=== PATIENT | female | born 1985 | race Caucasian/White ===

== ENCOUNTER 2024-04-01 12:17 | Inpatient (IN) | payer BC, SELFPAY ==
[2024-04-01] VITALS (18 sets, daily range): BP systolic 98–129; BP diastolic 52–82; PULSE 90–197; RESP 14–18; TEMP 36.7–37.2; O2SAT 95–100; BMI 18.8
--- NOTE | 2024-04-01 12:46 | CRLHL7_ITS ---
For Patients: As a result of the 21st Century Cures Act, medical imaging exams and procedure reports are released immediately into your electronic medical record. You may view this report before your referring provider. If you have questions, please contact your health care provider. INDICATION: Right lower quadrant pain. Suspected hernia. COMPARISON: None available. TECHNIQUE: CT of the abdomen and pelvis with 100 cc of Isovue 370 intravenous contrast. Please note that all CT scans at this facility use dose modulation, iterative reconstruction, and/or weight-based dosing when appropriate to reduce radiation dose to as low as reasonably achievable. FINDINGS: BODY WALL Small bowel containing right femoral hernia medial to the right common femoral vein which is not compressed. The herniated bowel is notable for wall thickening and there is fat stranding within the hernia sac. Findings are suspicious for possible strangulation. Associated high-grade upstream mechanical small bowel obstruction. Surgical consultation is recommended. ABDOMEN Liver: Normal hepatic attenuation. No suspicious focal hepatic lesion. No intrahepatic biliary ductal dilatation. Patent portal and hepatic veins. Gallbladder: Normal gallbladder size. Normal common duct caliber. No pericholecystic inflammatory changes. Pancreas: Normal pancreatic attenuation. No focal lesion. Normal duct caliber. No peripancreatic inflammatory changes. Spleen: Normal splenic attenuation. No suspicious focal lesion. Patent splenic artery and vein. Adrenal Glands: Symmetrical adrenal glands. No focal lesion of significance. Kidneys: Normal bilateral renal attenuation. No suspicious focal lesion. No obstructing nephrolith or dilatation of the intrarenal collecting systems. Patent renal arteries and veins. Nondilated upper urinary tracts. Gastrointestinal tract: Diffuse small bowel dilatation with transition point at the location of the right femoral hernia discussed above. The terminal ileum and colon are collapsed. Incidental note is made of focal narrowing of the small bowel in the left upper quadrant consistent with peristalsis, demonstrated to best advantage on the coronal series (4; 61), not clinically significant. Normal appendix. Vascular: Abdominal aorta and its major proximal branches including the celiac, superior mesenteric, inferior mesenteric, renal, and bilateral common iliac arteries are patent. Inferior vena cava, portal and superior mesenteric veins are patent. Additional findings: No incidental adenopathy. No significant ascites, free fluid or pneumoperitoneum. PELVIS No bladder lesion is identified. No significant incidental findings related to the uterus and uterine adnexae. No abnormal free fluid. No incidental adenopathy. SKELETON No acute or suspicious incidental findings. LOWER THORAX Partially included lower thoracic wall, lungs, pleural spaces and mediastinum are otherwise without significant incidental findings. IMPRESSION: Small bowel containing right femoral hernia medial to the right common femoral vein which is not compressed. The herniated bowel is notable for wall thickening and there is fat stranding within the hernia sac. These features are suspicious for possible strangulation. Associated high-grade upstream mechanical small bowel obstruction with diffuse dilatation of the proximal small intestine. Surgical consultation is recommended. Findings were discussed directly with the ordering provider at 1:40 p.m. [employer]. Please note that all CT scans at this facility use dose modulation, iterative reconstruction, and/or weight-based dosing when appropriate to reduce radiation dose to as low as reasonably achievable. Dictated by Pablo Vance MD @ 04/01/2024 1:46:12 PM (Electronically Signed)
--- NOTE | 2024-04-01 12:48 | ED_ITS ---
HPI - Abdominal Pain General Chief Complaint: Abdominal Pain Stated Complaint: Growth in pelvis, constipation Time Seen by Provider: 04/01/24 12:21 History of Present Illness HPI narrative: This 38-year-old female comes in reporting pain and a bulge in her right lower quadrant at the inguinal region. She states that this 1st happened about 3 months ago and then symptoms resolved. About a month ago she had severe pain and has had a bulge in the right lower quadrant since then. She states that her pain is now at about 4/10 in severity and she reports no bowel movement for the past week. She has been losing weight and states that she did not have enough strength to come in for evaluation until today. She does not report any fevers. She has been taking liquids. Related Data Home Medications ?Medication ?Instructions ?Recorded ?Confirmed No Known Home Medications 04/01/24 04/01/24 Allergies Allergy/AdvReac Type Severity Reaction Status Date / Time No Known Drug Allergies Allergy Verified 04/01/24 12:28 Review of Systems Status of ROS Reports: 10 or more systems reviewed and unremarkable except as noted in History and below Narrative Constitutional: No fevers, no weight gain or loss. Eyes: No discharge. No vision changes. HENT: No congestion, no sore throat, no ear pain. Cardiovascular: No chest pain, no palpitations. Respiratory: No shortness of breath, no wheezes, no cough. Gastrointestinal: No vomiting, no diarrhea. Abdominal pain and a bulge in the right lower quadrant as described above. Genitourinary: No dysuria, no hematuria. Musculoskeletal: Normal range of motion. Skin: No rashes, no pruritis. Neurological: No dizziness, weakness, sensory change, speech change. Endo/Heme/Allergies: No bruising or bleeding. No polydipsia. Pysch: no suicidality, no anxiety, no insomnia. All other systems reviewed and are negative. PFSH PFSH Social History Smoking Status: Never smoker Do you use any of these nicotine containing products: None Second hand tobacco smoke exposure: No How often do you have a drink containing alcohol: never AUDIT-C Alcohol total score: 0 Non-prescribed substance use: denies use service: No Exam Narrative: Exam Narrative: Constitutional: Well-developed, well-nourished, no acute distress. HEENT: Normocephalic, atraumatic. Neck: Normal range of motion. Nontender. Supple. Heart: Regular. No murmurs. Normal rate. Intact distal pulses. Lungs: Clear to auscultation. No chest discomfort. No wheezes, rhonchi, or rales. Abdomen: Normal bowel sounds. No rebound tenderness. A well-defined bulge in the inguinal region typical of a inguinal hernia with suspicion of incarceration. Genitalia: Deferred. Back: No midline tenderness. Normal range of motion. Extremities: Normal range of motion. No injury. Skin: Intact. No rash. Warm. No erythema or pallor. Neurologic: No altered sensation. No weakness. Alert and oriented. Psychiatric: No suicidality. No anxiety or depression. No insomnia. Nursing notes and vitals signs are reviewed. Const: Vital Signs, click to edit/add: Vital Signs - 24 hr 04/01/24 12:23 Temperature 98.1 F Pulse Rate [Pulse Oximeter] 115 H Respiratory Rate 16 Blood Pressure [Ri ght Upper Arm] 129/82 Pulse Oximetry 98 Oxygen Delivery Me thod Room Air Course Vital Signs Vital signs: Initial Vital Signs Temperature 98.1 F 04/01/24 12:23 Temperature Source Temporal Artery Scan 04/01/24 12:23 Pulse Rate 115 H 04/01/24 12:23 Respiratory Rate 16 04/01/24 12:23 Blood Pressure 129/82 04/01/24 12:23 Blood Pressure Mean 97 04/01/24 12:23 Blood Pressure Position Sitting 04/01/24 12:23 Pulse Oximetry 98 04/01/24 12:23 Oxygen Delivery Method Room Air 04/01/24 12:23 Vital Signs Temperature 98.1 F 04/01/24 12:23 Pulse Rate 115 H 04/01/24 12:23 Respiratory Rate 16 04/01/24 12:23 Blood Pressure 129/82 04/01/24 12:23 Pulse Oximetry 98 04/01/24 12:23 Oxygen Delivery Method Room Air 04/01/24 12:23 Temperature 98.1 F 04/01/24 12:23 Pulse Rate 115 H 04/01/24 12:23 Respiratory Rate 16 04/01/24 12:23 Blood Pressure 129/82 04/01/24 12:23 Pulse Oximetry 98 04/01/24 12:23 Oxygen Delivery Method Room Air 04/01/24 12:23 Medications Administered Medications: Discontinued Medications Generic Name Dose Route Start Last Admin Trade Name Freq PRN Reason Stop Dose Admin Sodium Chloride 1,000 mls @ 1,000 mls/hr 04/01/24 13:00 04/01/24 13:00 0.9 % Sodium Chloride 1000 Ml IV 04/01/24 13:59 1,000 mls/hr .Q1H CHRISTOPHER Administration MDM - Abdominal Pain MDM Narrative Medical decision making narrative: This patient comes in with an inguinal hernia that has been present and painful for more than 2 weeks. She states that it initially occurred about 3 months ago but this appears to be incarcerated as she states that she has not been able to take any food and has not had any bowel movement for more than a week. She is also not passing any gas. An IV was established and CT imaging is obtained which shows an incarcerated hernia with loop of bowel present in the herniation. Upstream from there is large dilation of her bowels typical of bowel obst ruction. The patient did receive a L of normal saline through the IV and labs returned remarkable with a white count at 18.75, lactate normal, and sodium at 123. I did speak with the surgeon on-call, Dr. Mensah, is arranging for emergent surgery. We had discussion also with the hospitalist director of undergraduate admissions, Dr. Bingham with regard to replenishing her sodium deficit. Lab Data Labs: Lab Results 04/01/24 04/01/24 Range/Units 13:00 13:36 WBC 18.75 H (4.50-11.00) K/uL RBC 4.88 (4.00-5.20) m/uL Hgb 14.3 (12.0-16.0) gm/dL Hct 40.1 (33.0-51.0) % MCV 82 (80-100) fL MCH 29 (26-34) pg MCHC 36 (32-36) gm/dL RDW Coeff of [place] 11.8 (11.5-15.5) % Plt Count 453 H (140-440) K/uL Neut % (Auto) 85.2 H (42.0-72.0) % Lymph % (Auto) 7.3 L (20-44) % [place] % (Auto) 6.8 (0.0-11.0) % Eos % (Auto) 0.2 (0.0-7.0) % Baso % (Auto) 0.2 (0.0-3.0) % Neut # (Auto) 16.00 H (1.7-7.0) K/uL Lymph # (Auto) 1.40 (0.90-2.90) K/uL [place] # (Auto) 1.30 H (0.00-0.90) K/UL Eos # (Auto) 0.00 (0.00-0.50) K/uL Baso # (Auto) 0.00 (0.00-0.30) K/uL Abs Immat Gran (auto) 0.10 (0.00-0.30) K/uL Imm/Tot Granulo (auto) 0.3 % Sodium 123 L* (135-149) mmol/L Potassium 3.1 L (3.6-5.1) mmol/L Chloride 79 L (96-114) mmol/L Carbon Dioxide 29 (20-32) mmol/L Anion Gap 15 (7-15) mEq/L BUN 13 (5-24) mg/dL Creatinine 0.7 (0.5-1.5) mg/dL Estimated Creat Clear 93.63 Estimated GFR 113 ml/min Glucose 99 (60-115) mg/dL Lactate 0.8 (0.5-1.9) mmol/L Calcium 9.4 (8.4-10.6) mg/dL Imaging Data CT scan - abdomen: Radiologist's impression: Small bowel containing right femoral hernia medial to the right common femoral vein which is not compressed. The herniated bowel is notable for wall thickening and there is fat stranding within the hernia sac. These features are suspicious for possible strangulation. Associated high-grade upstream mechanical small bowel obstruction with diffuse dilatation of the proximal small intestine. Surgical consultation is recommended. Findings were discussed directly with the ordering provider at 1:40 p.m. [employer]. Discharge Plan Discharge Clinical Impression: Small bowel obstruction, Incarcerated hernia Patient Disposition: XFER to OR Condition: Unchanged Prescriptions: No Action No Known Home Medications Follow Up/Referrals: Provider,Not a Local [Primary Care Provider] -
[2024-04-01] MEDS: 0.9 % SODIUM CHLORIDE 1000 ml 1,000 ML IV ×2 (13:00→16:30)
[2024-04-01 13:06] LABS: Basophils Percent Auto 0.2 % (0.0-3.0); Eosinophils Percent Auto 0.2 % (0.0-7.0); Hematocrit 40.1 % (33.0-51.0); Hemoglobin* 14.3 gm/dL (12.0-16.0); Immature Granulocytes Pct Auto 0.3 %; Lymphocytes Percent Auto 7.3 % (20-44); Mean Corpuscular HGB Conc 36 gm/dL (32-36); Mean Corpuscular Hemoglobin 29 pg (26-34); Mean Corpuscular Volume 82 fL (80-100); Monocytes Percent Auto 6.8 % (0.0-11.0); Neutrophils Percent Auto 85.2 % (42.0-72.0); Platelet Count* 453 K/uL (140-440); RDW Coefficient of Variation % 11.8 % (11.5-15.5); Red Blood Count 4.88 m/uL (4.00-5.20); White Blood Count* 18.75 K/uL (4.50-11.00)
[2024-04-01 13:08] LABS: Slide Review Reflex No
[2024-04-01 13:18] LABS: Chloride* 79 mmol/L (96-114); Potassium* 3.1 mmol/L (3.6-5.1)
[2024-04-01 13:20] LABS: Creatinine* 0.7 mg/dL (0.5-1.5); Est. Creatinine Clearance* 93.63; Estimated Glomerular Filt Rate 113 ml/min
[2024-04-01 13:21] LABS: Anion Gap 15 mEq/L (7-15); Blood Urea Nitrogen* 13 mg/dL (5-24); Calcium* 9.4 mg/dL (8.4-10.6); Carbon Dioxide* 29 mmol/L (20-32); Glucose* 99 mg/dL (60-115)
[2024-04-01 13:26] LABS: Sodium* 123 mmol/L (135-149)
[2024-04-01 13:41] LABS: Lactate* 0.8 mmol/L (0.5-1.9)
[2024-04-01 14:54] LABS: Basophils Percent Auto 0.2 % (0.0-3.0); Eosinophils Percent Auto 0.1 % (0.0-7.0); Hematocrit 37.9 % (33.0-51.0); Hemoglobin* 13.4 gm/dL (12.0-16.0); Immature Granulocytes Pct Auto 0.3 %; Lymphocytes Percent Auto 7.4 % (20-44); Mean Corpuscular HGB Conc 35 gm/dL (32-36); Mean Corpuscular Hemoglobin 29 pg (26-34); Mean Corpuscular Volume 83 fL (80-100); Platelet Count* 455 K/uL (140-440); RDW Coefficient of Variation % 11.8 % (11.5-15.5); Red Blood Count 4.57 m/uL (4.00-5.20); White Blood Count* 21.43 K/uL (4.50-11.00)
[2024-04-01 14:57] LABS: Slide Review Reflex No
--- NOTE | 2024-04-01 15:06 | P.GSCN_ITS ---
History of Present Illness Consult details Date Seen: 04/01/24 Consult date: 04/01/24 Narrative: 38-year-old female presented to emergency room with abdominal pain and right inguinal bulge. Patient states that she first noticed right inguinal bulge on March 20. The bulge was painful and was very firm. Patient had multiple episodes of vomiting. The bulge when down in size slightly but she continued not to feel well and being very weak at home. In the last 10 days she has been minimally eating and drinking fluids. She has been urinating. She has been vomiting on and off. She things that her last bowel movement was 10 days ago and she does not think that she passed gas in the last several days. Patient decided to come to the emergency room today because she was finally able to get out of bed. I personally reviewed patient's workup. Her WBC was elevated to 18. Her sodium was 123 and potassium 3.1. An abdominal CT was obtained that showed diffusely dilated small intestine with incarcerated right inguinal hernia containing small bowel. Review of Systems Narrative: General: no fevers HENT: no problems swallowing CV: no shortness of breath Resp: no cough GI: No nausea, vomiting, abdominal pain : no dysuria, no increased urinary frequency, no hematuria Skin: no new rashes Musculoskeletal: no back pain Neuro: no muscle weakness Psyche: no depression, no anxiety PFSH PFSH Surgical History (Updated 04/01/24 @ 15:08 by Guille Mensah MD) H/O cone biopsy of cervix ?Z98.890 - Other specified postprocedural states (ICD-10) Social History (Updated 04/01/24 @ 15:18 by Guille Mensah MD) Narrative: Patient denies smoking and drinking alcohol. She works in IT. Smoking Status: Never smoker Do you use any of these nicotine containing products: None Second hand tobacco smoke exposure: No How often do you have a drink containing alcohol: never AUDIT-C Alcohol total score: 0 Non-prescribed substance use: denies use service: No Meds Home Medications and Allergies Home Medications ?Medication ?Instructions ?Recorded ?Confirmed ?Type No Known Home Medications 04/01/24 04/01/24 History Allergies Allergy/AdvReac Type Severity Reaction Status Date / Time No Known Drug Allergies Allergy Verified 04/01/24 12:28 Exam Narrative: Exam Narrative: General appearance: Alert, cooperative, and in no distress Pulmonary: Chest symmetric, lungs clear bilaterally Cardiovascular Heart: Regular rate and rhythm, S1, S2, no murmurs/rubs/gallops Gastrointestinal Abdominal: soft, minimally distended, not tender to palpation throughout the abdomen. In the right inguinal canal there is a firm to palpation incarcerated inguinal hernia that is not reducible. This is tender to palpation. There is no overlying erythema. Skin: Normal skin color, texture, and turgor. No rashes or lesions. Psychiatric: Alert, cooperative, normal affect. Const: Vital Signs, click to edit/add: Vital Signs - 24 hr 04/01/24 12:23 04/01/24 14:58 Temperature 98.1 F Pulse Rate [Pulse Oximeter] 115 H 107 H Respiratory Rate 16 18 Blood Pressure [Ri ght Upper Arm] 129/82 122/80 Pulse Oximetry 98 98 Oxygen Delivery Me thod Room Air Results Labs Labs: Abnormal lab results 04/01/24 04/01/24 Range/Units 13:00 14:36 WBC 18.75 H 21.43 H (4.50-11.00) K/uL Plt Count 453 H 455 H (140-440) K/uL Neut % (Auto) 85.2 H 86.0 H (42.0-72.0) % Lymph % (Auto) 7.3 L 7.4 L (20-44) % Neut # (Auto) 16.00 H 18.40 H (1.7-7.0) K/uL [place] # (Auto) 1.30 H 1.30 H (0.00-0.90) K/UL Sodium 123 L* (135-149) mmol/L Potassium 3.1 L (3.6-5.1) mmol/L Chloride 79 L (96-114) mmol/L Diabetes panel 04/01/24 Range/Units 13:00 Sodium 123 L* (135-149) mmol/L Potassium 3.1 L (3.6-5.1) mmol/L Chloride 79 L (96-114) mmol/L Carbon Dioxide 29 (20-32) mmol/L BUN 13 (5-24) mg/dL Creatinine 0.7 (0.5-1.5) mg/dL Glucose 99 (60-115) mg/dL Calcium 9.4 (8.4-10.6) mg/dL Calcium panel 04/01/24 Range/Units 13:00 Calcium 9.4 (8.4-10.6) mg/dL Pituitary panel 04/01/24 Range/Units 13:00 Sodium 123 L* (135-149) mmol/L Potassium 3.1 L (3.6-5.1) mmol/L Chloride 79 L (96-114) mmol/L Carbon Dioxide 29 (20-32) mmol/L BUN 13 (5-24) mg/dL Creatinine 0.7 (0.5-1.5) mg/dL Glucose 99 (60-115) mg/dL Calcium 9.4 (8.4-10.6) mg/dL Adrenal panel 04/01/24 Range/Units 13:00 Sodium 123 L* (135-149) mmol/L Potassium 3.1 L (3.6-5.1) mmol/L Chloride 79 L (96-114) mmol/L Carbon Dioxide 29 (20-32) mmol/L BUN 13 (5-24) mg/dL Creatinine 0.7 (0.5-1.5) mg/dL Glucose 99 (60-115) mg/dL Calcium 9.4 (8.4-10.6) mg/dL All other labs normal. Progress Note:A&P Assessment and plan (1) Incarcerated hernia: Status: Acute Assessment and Plan: 38-year-old female presents with incarcerated right inguinal hernia and small- bowel obstruction. I discussed with the patient and her sister her laboratory findings and her CT findings. Patient has incarcerated non reducible right inguinal hernia with associated small-bowel obstruction. I recommended to proceed with exploratory laparoscopy and open right inguinal hernia repair. I discussed with the patient that I may not be able to safely place the laparoscope into the abdomen to visualize reducing the hernia. We also discussed about possible open procedure and possible small-bowel resection. The risks of the procedure including infection, bleeding, the need for additional procedures, and complications arising from hyponatremia and hypokalemia were all discussed with the patient, and she agreed to proceed.
[2024-04-01 15:18] LABS: Sodium* 124 mmol/L (135-149)
[2024-04-01] MEDS: LACTATED RINGERS 1000 ML 1,000 ML 35 ML IV (15:30)
[2024-04-01] MEDS: PIPERACILLIN/TAZOBACTAM 3.375 GM in 0.9 % SODIUM CHLORIDE Mini-bag 100 ML IVPB ×2 (16:00→22:03)
[2024-04-01] MEDS: BUPIVACAINE 0.25% 30 ML INJECTION (16:23)
[2024-04-01 17:34] LABS: Lactate* 0.9 mmol/L (0.5-1.9)
[2024-04-01 17:35] LABS: Basophils Percent Auto 0.2 % (0.0-3.0); Eosinophils Percent Auto 0.2 % (0.0-7.0); Hemoglobin* 10.4 gm/dL (12.0-16.0); Immature Granulocytes Pct Auto 0.4 %; Lymphocytes Percent Auto 8.1 % (20-44); Mean Corpuscular HGB Conc 35 gm/dL (32-36); Mean Corpuscular Hemoglobin 29 pg (26-34); Mean Corpuscular Volume 84 fL (80-100); Monocytes Percent Auto 6.2 % (0.0-11.0); Neutrophils Percent Auto 84.9 % (42.0-72.0); Platelet Count* 355 K/uL (140-440); RDW Coefficient of Variation % 11.8 % (11.5-15.5); Red Blood Count 3.57 m/uL (4.00-5.20); White Blood Count* 17.35 K/uL (4.50-11.00)
[2024-04-01 17:37] LABS: Slide Review Reflex No
[2024-04-01 17:52] LABS: Chloride* 91 mmol/L (96-114); Potassium* 3.1 mmol/L (3.6-5.1)
[2024-04-01 17:55] LABS: Anion Gap 9 mEq/L (7-15); Blood Urea Nitrogen* 11 mg/dL (5-24); Carbon Dioxide* 23 mmol/L (20-32); Creatinine* 0.5 mg/dL (0.5-1.5); Est. Creatinine Clearance* 131.09; Estimated Glomerular Filt Rate 123 ml/min
[2024-04-01 17:56] LABS: Calcium* 7.4 mg/dL (8.4-10.6); Glucose* 107 mg/dL (60-115); Magnesium* 3.2 mg/dL (1.5-2.6)
[2024-04-01 18:02] LABS: Sodium* 123 mmol/L (135-149)
--- NOTE | 2024-04-01 19:32 | P.GSOP_ITS ---
Operative Note Date of procedure: 04/01/24 Pre-op diagnosis: 1. Incarcerated right inguinal hernia. 2. Hyponatremia. 3. Hypokalemia. Post-op diagnosis: 1. Incarcerated right femoral hernia containing small bowel. 2. Hyponatremia. 3. Hypokalemia. Type of Procedure: 1. Diagnostic laparoscopy. 2. Exploratory laparotomy. 3. Open right femoral hernia repair without mesh. 4. Small bowel resection with primary anastomosis. Indications: 38-year-old female presented to emergency room with diffuse abdominal pain and a right inguinal bulge that started 10 days ago. Patient states that the bulge was very firm and she had multiple episodes of vomiting. The bulge then decreased in size but she continued not to feel well and weak. She had did not present to the hospital earlier because she was not able to get out of bed. She has not being eating for the past several days and has been drinking to stay hydrated. She has been urinating. On clinical exam she was found to have minimally distended abdomen. There was a firm bulge in the right inguinal area that was not reducible. Patient's workup showed elevated WBC. Her sodium was 123 with potassium of 3.1. An abdominal CT was obtained that showed diffusely dilated small intestine with a transition point in the right inguinal canal in the incarcerated her hernia containing small intestine. Given patient's clinical picture, her physical exam, and CT findings, emergent diagnostic laparoscopy and open exploratory laparotomy with right inguinal hernia repair were recommended. The procedure was discussed in detail. The risks associated procedure including infection, bleeding, possible small-bowel resection, hernia recurrence, neurologic complications related to hyponatremia, and cardiopulmonary complications were all discussed with the patient, and she agreed to proceed Procedure Description: After discussing the risks and benefits of the procedure, the patient signed informed consent.? The operative site was marked and the patient was brought to the operating room and placed on the operating table in supine position.? Care was taken to pad the patient's pressure points.?? The patient was then intubated by anesthesia.? Fritz catheter was placed under sterile conditions.? The operative site was then prepped and draped in the usual sterile fashion.? A time-out was then performed. A 5-mm laparoscopy port was placed in the left upper quadrant guided by a 5-mm laparoscope placed into a translucent trochar. Passage through the layers of the abdominal wall was visualized with the laparoscope. A pneumoperitoneum was established. A 30-degree 5-mm laparoscope was advanced into the abdomen. The abdomen was briefly surveyed, and there was no evidence of diffuse peritonitis or stool. Open inguinal hernia incision was made over the right inguinal bulge with a scalpel. Subcutaneous fat was divided with cautery down to to external obliques. Superficial subcutaneous vascular branches were clamped, divided and tied with 3-0 Vicryl ties. The external obliques were divided with Metzenbaum scissors. The hernia bulge appeared to be inferior to the inguinal ligament. This was suggestive of a right femoral hernia. The tissues around the incarcerated hernia bulge were dissected with cautery. Hemostasis was achieved with cautery and Vicryl ties. When the incarcerated segment of small intestine was mobilized, I attempted to reduce it into the abdomen but was not successful. The right inguinal ligament was then divided superiorly. I again attempted to reduce the right femoral hernia but was not successful. At this time I noticed stool in right inguinal hernia surgical incision which was suggestive of perforation in the incarcerated bowel. At this time decision was made to convert to open laparotomy. The left upper quadrant 5 mm port was then removed. A vertical lower midline skin incision was made with a scalpel. Subcutaneous fat was divided with cautery. Anterior fascia was grasped with Brett clamps and incised with Metzenbaum scissors. Posterior sheath and peritoneum were gras ped with Mariann clamps and incised with Metzenbaum scissors. The abdomen was entered and surgical incision was extended superiorly and inferiorly with cautery. Clear yellow ascites was suctioned from the abdomen. A Medium sized Kirk was placed into the inferior laparotomy incision. With manipulation of the incarcerated segment of small intestine through the inguinal incision and through the laparotomy incision I was finally able to reduce the segment of small intestine. This was eviscerated and renée perforation was noted in the small intestine. This was located in the distal terminal ileum. The distal terminal ileum was decompressed and the proximal terminal ileum was dilated due to prolonged incarceration. We then proceeded with small bowel resection. Blue loads of ELDER stapler were used to divide small intestine distally and proximally to the area of perforation. Small-bowel mesentery of the resected segment was then clamped with Mariann clamps and divided with Metzenbaum scissors. Hemostasis achieved with Vicryl ties. The resected segment of small intestine was sent to pathology. Small bowel was examined from the area of resection to the ligament of Treitz. The small bowel appeared to be dilated but was perfused and no strictures or other abnormalities were noted. We then proceeded with creating [id number] functional end-to-end small bowel anastomosis. Bleeding was seen from the staple lines, and that was oversewn with 3-0 silk sutures. A stay suture was placed near the stapled ends of small bowel to align the stapled ends. An enterotomy was made in the distal and proximal ends of the small intestine approximately 1 cm from the stapled ends. One hundred blue load of ELDER stapler was used to create a [id number] anastomosis. The anastomosis was examined from the inside and no bleeding was seen. The common enterotomy was then closed with 3-0 silk Lembert sutures. A crotch stitch was placed with 3-0 silk suture. The anastomosis was well perfused and was patent on palpation. The small bowel mesenteric defect was closed with a running 3-0 Vicryl suture. The anastomosis was then placed into the abdomen. Previously placed towels that covered the abdomen and right inguinal incision were now removed and Kirk retractor was removed. Surgeon and water quality assistant changed gloves. The abdomen was then irrigated with warm normal saline. The NG tube was palpated in the stomach and was secured in place at 71 cm. We then proceeded with right inguinal hernia repair. The hernia sac was then eviscerated through the inguinal hernia incision. The hernia sac was mobilized and appeared to contain inflamed thickened preperitoneal fat. The appendix was visualized in the abdomen and the right ovary was visualized in the abdomen to ensure that those structures were not incarcerated in the hernia sac. The hernia sac was excised and sent to pathology. The peritoneal defect was then closed with a running Vicryl suture. This was pushed intraperitoneally. Hemostasis was achieved with cautery. The femoral hernia defect was repaired by placing interrupted 0-0 Nurolon sutures from the pubic tubercle and along the Robbie's ligament and securing it to the conjoint tendon medially. Adjacent to the femoral vein, a transition stitch was placed and then the repair continued laterally by suturing conjoint tendon to the inguinal ligament. At the end of the repair, the femoral vein did not appear to be compressed or injured. The round ligament was identified and was divided with clamps and ties. The proximal end of the round ligament was pushed into the internal ring, and the internal ring was closed with a [id number] Vicryl stitch. The external oblique layer was then closed with a running Vicryl suture. The inguinal incision was irrigated with saline. Local anesthetic was injected in the surgical field. Kimi's fascia was then closed with interrupted Vicryl sutures. Dermis was reapproximated with interrupted 3-0 Vicryl sutures. We then proceeded with closure of midline laparotomy. The fascia of the midline laparotomy was then closed with 2 running 0-0 Maxon sutures. Subcutaneous fat was reapproximated with interrupted 3-0 Vicryl sutures. The skin of the midline laparotomy incision and right inguinal incision were closed with klever. The skin of the left upper quadrant laparoscopic port was closed with 4-0 Monocryl stitch. Steri-Strips were placed over this incision. Midline laparotomy incision and inguinal incisions were covered with sterile dressings. All counts were correct at the end of the case. Patient tolerated this procedure well and was transferred to PACU in stable condition. Findings: Incarcerated small bowel in the right femoral hernia perforated during manipulation in attempt to reduce the hernia. This segment of bowel was resected and was located 25 cm from the ileocecal valve. The femoral hernia was repaired without mesh. Anesthesia: GETA Surgeon: Guille Mensah MD Estimated blood loss (mL): 50 Additional Specimen Information: 1. Small-bowel (terminal ileum). 2. Right inguinal hernia sac. Condition: stable Disposition: PACU
--- NOTE | 2024-04-01 19:43 | P.ANES_ITS ---
Anesthesia Charges Start Date/Time Anesthesia Start Date: 04/01/24 Anesthesia Start Time: 15:33 Stop Date/Time Anesthesia Stop Date: 04/01/24 Anesthesia Stop Time: 19:09 Summary Emergency: [facility]
--- NOTE | 2024-04-01 19:50 | P.NB_ITS ---
Nerve Block Nerve Block Time Seen by Provider: 19:00 Date Seen: 04/01/24 Type of block requested by surgeon for post-operative analgesia: TAP Side: bilateral Time out performed: Yes Verification of patient name: Yes Verification of date of : Yes Site marking: site marked Name of person performing procedure: Nasir Pablo Continuous monitoring Was continuous monitoring of O2 sat, B/P, monitor car operator, recorded every 15 minutes?: Yes Procedure Checklist: sterile prep, needles and gloves Ultrasound guided. Images saved: Yes Medications given in 5ml increments after negative aspiration: Marcaine %: 0.25 mL: 30 Needle gauge: 21 and Exparel mL: 10 Needle gauge: 21 Patient tolerated procedure well: Yes Additional comments: Injected in 5mL increments after negative aspiration Block Charges Block Charge (with Pro Fee): TAP Bilateral Use of Ultrasound Machine for Block: Yes- US Guidance/pain block
[2024-04-01] MEDS: 0.9 % SODIUM CHLORIDE 1000 ml 1,000 ML 125 ML IV (19:53)
--- NOTE | 2024-04-01 19:57 | P.IMHP_ITS ---
Hospitalist- H&P: HPI History of Present Illness Time Seen by Provider: 19:40 Date Seen: 04/01/24 Chief complaint: Growth in pelvis, constipation Narrative: Juany Green is a 38 year old healthy female who presented through the emergency department with a right inguinal bulge and no bowel movement for 10 days. She was found to have an incarcerated right inguinal hernia and small- bowel obstruction. She was also found to have hyponatremia and hypokalemia. S he comes to the CCU after surgery with an NG tube in place. Juany is awake and able to answer questions. She complaints of pain in her groin and lower abdomen. She denies chest pain or shortness of breath. Review of Systems Status of ROS: Reports: 6 or more systems reviewed and unremarkable except as noted in History and below [facility] Surgical History H/O cone biopsy of cervix ?Z98.890 - Other specified postprocedural states (ICD-10) Social History (Updated 04/01/24 @ 20:51 by Jacey Fournier MD) Narrative: Not . No children. She currently lives with her mother. Patient denies smoking and drinking alcohol. Denies recreational drug use. She works in IT. Smoking Status: Never smoker Do you use any of these nicotine containing products: None Second hand tobacco smoke exposure: No How often do you have a drink containing alcohol: never AUDIT-C Alcohol total score: 0 Non-prescribed substance use: denies use service: No Meds Home Medications and Allergies Home Medications ?Medication ?Instructions ?Recorded ?Confirmed ?Type No Known Home Medications 04/01/24 04/01/24 History Allergies Allergy/AdvReac Type Severity Reaction Status Date / Time No Known Drug Allergies Allergy Verified 04/01/24 12:28 Exam Narrative: Exam Narrative: General: No acute distress. Eyes closed, awake, oriented x3. HEENT: Normocephalic atraumatic, pupils equally round and reactive to light and accommodation. Oropharynx clear. Mucous membranes are dry. No cervical lymphadenopathy, thyromegaly or carotid bruits. No JVD. Cardiovascular: Regular rate and rhythm. No murmurs, gallops, or rubs. Chest: No increased work of breathing. Clear to auscultation bilaterally. No crackles or wheezes. Abdomen: Postsurgical abdomen with laparoscopic bandages and 2 larger bandages over the suprapubic and right inguinal areas. All bandages are clean, dry, and intact. Extremities: No edema, no cyanosis or clubbing. Skin: No jaundice, no pallor, no rashes. Const: Vital Signs, click to edit/add: Vital Signs - 24 hr 04/01/24 12:23 04/01/24 14:58 04/01/24 19:05 Temperature 98.1 F 98.7 F Pulse Rate 100 Pulse Rate [Pulse Oximeter] 115 H 107 H Respiratory Rate 16 18 16 Blood Pressure 115/55 L Blood Pressure [Ri ght Upper Arm] 129/82 122/80 Pulse Oximetry 98 98 97 Oxygen Delivery Me thod Room Air Room Air 04/01/24 19:10 04/01/24 19:15 04/01/24 19:20 Temperature Pulse Rate 93 98 95 Pulse Rate [Pulse Oximeter] Respiratory Rate 18 16 16 Blood Pressure 114/57 L 111/59 L 114/58 L Blood Pressure [Ri ght Upper Arm] Pulse Oximetry 99 97 99 Oxygen Delivery Me thod Room Air Room Air Room Air 04/01/24 19:25 04/01/24 19:30 Temperature 98.3 F Pulse Rate 97 90 Pulse Rate [Pulse Oximeter] Respiratory Rate 16 16 Blood Pressure 113/60 113/59 L Blood Pressure [Ri ght Upper Arm] Pulse Oximetry 99 99 Oxygen Delivery Me thod Room Air Room Air Hospitalist - H&P: Result Labs Labs: Short CBC 04/01/24 04/01/24 04/01/24 Range/Units 13:00 14:36 17:30 WBC 18.75 H 21.43 H 17.35 H (4.50-11.00) K/uL Hgb 14.3 13.4 10.4 L (12.0-16.0) gm/dL Hct 40.1 37.9 30.0 L (33.0-51.0) % Plt Count 453 H 455 H 355 (140-440) K/uL BMP 04/01/24 04/01/24 04/01/24 13:00 14:36 17:30 Sodium 123 L* 124 L* 123 L* Potassium 3.1 L 3.1 L Chloride 79 L 91 L Carbon Dioxide 29 23 BUN 13 11 Creatinine 0.7 0.5 Glucose 99 107 Calcium 9.4 7.4 L 04/01/2024 EKG done in PACU: Sinus rhythm with first-degree AV block, 91 beats per minute. Possible inferior infarct, age undetermined. ST and marked T-wave abnormality, consider anterolateral ischemia. Ordering Physician: Bob Downey M.D. Date of Service: 04/01/24 Procedure(s): CT abdomen pelvis w con Accession Number(s): [id number] cc: Bob Downey M.D.; Provider,Not a Local~ ADDENDUM INDICATION: Right lower quadrant pain. Suspected hernia. COMPARISON: None available. TECHNIQUE: CT of the abdomen and pelvis with 100 cc of Isovue 370 intravenous contrast. Please note that all CT scans at this facility use dose modulation, iterative reconstruction, and/or weight-based dosing when appropriate to reduce radiation dose to as low as reasonably achievable. FINDINGS: BODY WALL Small bowel containing right femoral hernia medial to the right common femoral vein which is not compressed. The herniated bowel is notable for wall thickening and there is fat stranding within the hernia sac. Findings are suspicious for possible strangulation. Associated high-grade upstream mechanical small bowel obstruction. Surgical consultation is recommended. ABDOMEN Liver: Normal hepatic attenuation. No suspicious focal hepatic lesion. No intrahepatic biliary ductal dilatation. Patent portal and hepatic veins. Gallbladder: Normal gallbladder size. Normal common duct caliber. No pericholecystic inflammatory changes. Pancreas: Normal pancreatic attenuation. No focal lesion. Normal duct caliber. No peripancreatic inflammatory changes. Spleen: Normal splenic attenuation. No suspicious focal lesion. Patent splenic artery and vein. Adrenal Glands: Symmetrical adrenal glands. No focal lesion of significance. Kidneys: Normal bilateral renal attenuation. No suspicious focal lesion. No obstructing nephrolith or dilatation of the intrarenal collecting systems. Patent renal arteries and veins. Nondilated upper urinary tracts. Gastrointestinal tract: Diffuse small bowel dilatation with transition point at the location of the right femoral hernia discussed above. The terminal ileum and colon are collapsed. Incidental note is made of focal narrowing of the small bowel in the left upper quadrant consistent with peristalsis, demonstrated to best advantage on the coronal series (4; 61), not clinically significant. Normal appendix. Vascular: Abdominal aorta and its major proximal branches including the celiac, superior mesenteric, inferior mesenteric, renal, and bilateral common iliac arteries are patent. Inferior vena cava, portal and superior mesenteric veins are patent. Additional findings: No incidental adenopathy. No significant ascites, free fluid or pneumoperitoneum. PELVIS No bladder lesion is identified. No significant incidental findings related to the uterus and uterine adnexae. No abnormal free fluid. No incidental adenopathy. SKELETON No acute or suspicious incidental findings. LOWER THORAX Partially included lower thoracic wall, lungs, pleural spaces and mediastinum are otherwise without significant incidental findings. IMPRESSION: Small bowel containing right femoral hernia medial to the right common femoral vein which is not compressed. The herniated bowel is notable for wall thickening and there is fat stranding within the hernia sac. These features are suspicious for possible strangulation. Associated high-grade upstream mechanical small bowel obstruction with diffuse dilatation of the proximal small intestine. Surgical consultation is recommended. Findings were discussed directly with the ordering provider at 1:[address] WORKER. Please note that all CT scans at this facility use dose modulation, iterative reconstruction, and/or weight-based dosing when appropriate to reduce radiation dose to as low as reasonably achievable. Dictated by Pablo Vance MD @ 04/01/2024 1:46:12 PM ----- ADDENDUM ----- ADDENDUM: Please note the correct amount of administered intravenous contrast in the edited TECHNIQUE section of the report as follows: TECHNIQUE: CT of the abdomen and pelvis with 58 cc of Isovue 370 intravenous contrast. Please note that all CT scans at this facility use dose modulation, iterative reconstruction, and/or weight-based dosing when appropriate to reduce radiation dose to as low as reasonably achievable. Dictated by Pablo Vance MD @ Apr 01 2024 1:51PM (Electronically Signed) For Patients: As a result of the Century Cures Act, medical imaging exams and procedure reports are released immediately into your electronic medical record. You may view this report before your referring provider. If you have questions, please contact your health care provider. INDICATION: Right lower quadrant pain. Suspected hernia. COMPARISON: None available. TECHNIQUE: CT of the abdomen and pelvis with 100 cc of Isovue 370 intravenous contrast. Please note that all CT scans at this facility use dose modulation, iterative reconstruction, and/or weight-based dosing when appropriate to reduce radiation dose to as low as reasonably achievable. FINDINGS: BODY WALL Small bowel containing right femoral hernia medial to the right common femoral vein which is not compressed. The herniated bowel is notable for wall thickening and there is fat stranding within the hernia sac. Findings are suspicious for possible strangulation. Associated high-grade upstream mechanical small bowel obstruction. Surgical consultation is recommended. ABDOMEN Liver: Normal hepatic attenuation. No suspicious focal hepatic lesion. No intrahepatic biliary ductal dilatation. Patent portal and hepatic veins. Gallbladder: Normal gallbladder size. Normal common duct caliber. No pericholecystic inflammatory changes. Pancreas: Normal pancreatic attenuation. No focal lesion. Normal duct caliber. No peripancreatic inflammatory changes. Spleen: Normal splenic attenuation. No suspicious focal lesion. Patent splenic artery and vein. Adrenal Glands: Symmetrical adrenal glands. No focal lesion of significance. Kidneys: Normal bilateral renal attenuation. No suspicious focal lesion. No obstructing nephrolith or dilatation of the intrarenal collecting systems. Patent renal arteries and veins. Nondilated upper urinary tracts. Gastrointestinal tract: Diffuse small bowel dilatation with transition point at the location of the right femoral hernia discussed above. The terminal ileum and colon are collapsed. Incidental note is made of focal narrowing of the small bowel in the left upper quadrant consistent with peristalsis, demonstrated to best advantage on the coronal series (4; 61), not clinically significant. Normal appendix. Vascular: Abdominal aorta and its major proximal branches including the celiac, superior mesenteric, inferior mesenteric, renal, and bilateral common iliac arteries are patent. Inferior vena cava, portal and superior mesenteric veins are patent. Additional findings: No incidental adenopathy. No significant ascites, free fluid or pneumoperitoneum. PELVIS No bladder lesion is identified. No significant incidental findings related to the uterus and uterine adnexae. No abnormal free fluid. No incidental adenopathy. SKELETON No acute or suspicious incidental findings. LOWER THORAX Partially included lower thoracic wall, lungs, pleural spaces and mediastinum are otherwise without significant incidental findings. IMPRESSION: Small bowel containing right femoral hernia medial to the right common femoral vein which is not compressed. The herniated bowel is notable for wall thickening and there is fat stranding within the hernia sac. These features are suspicious for possible strangulation. Associated high-grade upstream mechanical small bowel obstruction with diffuse dilatation of the proximal small intestine. Surgical consultation is recommended. Findings were discussed directly with the ordering provider at 1:[address] WORKER. Please note that all CT scans at this facility use dose modulation, iterative reconstruction, and/or weight-based dosing when appropriate to reduce radiation dose to as low as reasonably achievable. Dictated by Pablo Vance MD @ 04/01/2024 1:46:12 PM (Electronically Signed) Assessment and Plan Assessment and plan (1) Incarcerated hernia: Problem comment: - 04/01/24 status post diagnostic laparoscopy, exploratory laparotomy, open right femoral hernia repair without mesh, small-bowel resection with primary anastomosis. - cares per General surgery. - NG tube, NPO Status: Acute (2) Small bowel obstruction: Status: Acute (3) Hypokalemia: Problem comment: Due to going to the OR, patient has not yet received potassium replacement. Give IV replacement now and recheck in the morning. She will likely need further potassium replacement since she is getting NG suction. Magnesium was given by Anesthesia and magnesium level after surgery is mildly elevated. Status: Acute (4) Hyponatremia: Problem comment: Giving normal saline at 125 mL/hour. Patient is NPO at this time. Monitoring sodium q.4 hours. She started at 1:23 a.m. in the ER upon presentation. Goal is to raise sodium for points in the next 24 hours. Status: Acute (5) Hypocalcemia: Problem comment: Ionized calcium is 1. Patient is NPO. Will give IV calcium gluconate and recheck in the morning. Status: Acute
[2024-04-01] MEDS: HYDROmorphone 0.5 mg/0.5 ml inj IVP ×4 (20:02→23:31)
[2024-04-01] MEDS: POTASSIUM CHLORIDE 10 MEQ/100 ML PIGGYBACK 100 MEQ IVPB ×2 (20:59→22:14)
[2024-04-01 21:36] LABS: Sodium* 127 mmol/L (135-149)
[2024-04-01 21:51] LABS: Troponin I* 0.02 ng/mL (0.01-0.04)
[2024-04-01] MEDS: LACTATED RINGERS 1000 ML 1,000 ML 75 ML IV (21:57)
[2024-04-01] MEDS: CALCIUM GLUC 1,000MG/50 ML 1,000 MG/50 ML BAG 100 MG IVPB ×2 (21:57→22:39)
[2024-04-01 23:25] LABS: Sodium* 125 mmol/L (135-149)
[2024-04-01] MEDS: LACTATED RINGERS 1000 ML 1,000 ML 100 ML IV (23:35)
[2024-04-02] VITALS (15 sets, daily range): BP systolic 93–129; BP diastolic 57–77; PULSE 98–115; RESP 14–18; TEMP 36.7–37.6; O2SAT 93–99
--- NOTE | 2024-04-02 00:03 | PC.NURSE ---
Shift Note: Pt returned from PACU at 1940 with immediate complaints of 10/10 pain. Pt given three subsequent doses of PRN Dilaudid Q1H, pt now rating pain 6-7/10. HR mildly tachycardic, BP's WNL. SpO2 95-99% on RA. Pt alert and answers questions appropriately. Surgical dressings x2 to abdomen C,D,&I with active ice in place. Fritz patent and draining, urine output 125cc since return from PACU. Pt tolerating oral swabs and minimal ice chips. No output from NG tube located in left nare at 70cm connected to LIS. Sister at bedside most of this evening. [employer] updated patient and her sister on POC, pain control, and orientation to the hospital setting.
[2024-04-02] MEDS: HYDROmorphone 0.5 mg/0.5 ml inj IVP ×14 (00:53→22:41)
[2024-04-02] MEDS: PIPERACILLIN/TAZOBACTAM 3.375 GM in 0.9 % SODIUM CHLORIDE Mini-bag 100 ML IVPB ×4 (03:52→22:06)
[2024-04-02 06:12] LABS: Ionized Calcium* 1.08 mmol/L (1.11-1.30)
[2024-04-02 06:18] LABS: Basophils Percent Auto 0.2 % (0.0-3.0); Eosinophils Percent Auto 0.1 % (0.0-7.0); Hematocrit 34.3 % (33.0-51.0); Hemoglobin* 11.9 gm/dL (12.0-16.0); Immature Granulocytes Pct Auto 0.3 %; Lymphocytes Percent Auto 7.2 % (20-44); Mean Corpuscular HGB Conc 35 gm/dL (32-36); Mean Corpuscular Hemoglobin 30 pg (26-34); Mean Corpuscular Volume 85 fL (80-100); Neutrophils Percent Auto 89.2 % (42.0-72.0); Platelet Count* 383 K/uL (140-440); RDW Coefficient of Variation % 12.3 % (11.5-15.5); Red Blood Count 4.03 m/uL (4.00-5.20); White Blood Count* 19.13 K/uL (4.50-11.00)
[2024-04-02 06:19] LABS: Slide Review Reflex No
--- NOTE | 2024-04-02 06:28 | PC.NURSE ---
End of shift [id number]: Pt has been A&O, afebrile and VSS. BP has been soft 90s/60s but MAP remains > 65. She?s rating mid-right sided abdominal pain at 7/10 and reports it?s sharp & intermittent. PRN Dilaudid given hourly throughout the night. Pt reports quick relief but the pain returns in waves after about 30 min. She slept well in between cares & SpO2 maintained > 92% on RA. Midline abdominal dressings x2 C/D/I and bilateral band-aids from blocks are intact. PIV in left AC is SL and C/D/I. PIV in right AC is C/D/I and infusing LR @ 100 mL/hr. Na+ @ 2300 was 125 with scheduled recheck with AM labs. NG is patent in left nare at 70 mm on LIS. Drainage output in canister is green/brown in color, total output overnight 300 mL. Pt tolerated minimal ice chips overnight with no c/o nausea. Fritz catheter is intact & draining dark yellow urine, total output overnight [address] ranging from 90s to 1-teens regular rhythm. ?
[2024-04-02 06:34] LABS: Magnesium* 2.1 mg/dL (1.5-2.6); Phosphorus* 3.8 mg/dL (2.5-4.5)
[2024-04-02 06:35] LABS: Chloride* 95 mmol/L (96-114); Potassium* 3.6 mmol/L (3.6-5.1); Sodium* 127 mmol/L (135-149)
[2024-04-02 06:38] LABS: Anion Gap 6 mEq/L (7-15); Blood Urea Nitrogen* 8 mg/dL (5-24); Carbon Dioxide* 26 mmol/L (20-32); Creatinine* 0.6 mg/dL (0.5-1.5); Est. Creatinine Clearance* 109.88; Estimated Glomerular Filt Rate 118 ml/min; Glucose* 86 mg/dL (60-115)
[2024-04-02 06:39] LABS: Calcium* 7.9 mg/dL (8.4-10.6)
[2024-04-02] MEDS: LACTATED RINGERS 1000 ML 1,000 ML 100 ML IV ×2 (08:15→13:06)
--- NOTE | 2024-04-02 09:00 | P.GSPN_ITS ---
Subjective Subjective Date Seen: 04/02/24 Interval history: Patient is doing well. Her pain is controlled with pain medication. She denied vomiting. NG tube put out 300 mL. Urine output was 450 since surgery. Patient's WBC continues to be elevated at 19. Her sodium is 127 today. Exam Narrative: Exam Narrative: Abdomen is soft, not distended, tender to palpation in bilateral lower quadrants. Surgical incisions are covered with clean and dry dressings. Const: Vital Signs, click to edit/add: Vital Signs - 24 hr 04/01/24 12:23 04/01/24 14:58 04/01/24 19:05 Temperature 98.1 F 98.7 F Pulse Rate 100 Pulse Rate [Pulse Oximeter] 115 H 107 H Respiratory Rate 16 18 16 Blood Pressure 115/55 L Blood Pressure [Le ft Arm] Blood Pressure [Ri ght Upper Arm] 129/82 122/80 Pulse Oximetry 98 98 97 Oxygen Delivery Me thod Room Air Room Air 04/01/24 19:10 04/01/24 19:15 04/01/24 19:20 Temperature Pulse Rate 93 98 95 Pulse Rate [Pulse Oximeter] Respiratory Rate 18 16 16 Blood Pressure 114/57 L 111/59 L 114/58 L Blood Pressure [Le ft Arm] Blood Pressure [Ri ght Upper Arm] Pulse Oximetry 99 97 99 Oxygen Delivery La thod Room Air Room Air Room Air 04/01/24 19:25 04/01/24 19:30 04/01/24 20:00 Temperature 98.3 F 98.7 F Pulse Rate 97 90 98 Pulse Rate [Pulse Oximeter] Respiratory Rate 16 16 16 Blood Pressure 113/60 113/59 L 103/60 Blood Pressure [Le ft Arm] Blood Pressure [Ri ght Upper Arm] Pulse Oximetry 99 99 100 Oxygen Delivery Me thod Room Air Room Air Room Air 04/01/24 20:13 04/01/24 20:13 04/01/24 20:15 Temperature 98.7 F Pulse Rate 105 H Pulse Rate [Pulse Oximeter] 99 Respiratory Rate 16 16 Blood Pressure 102/54 L Blood Pressure [Le ft Arm] 98/56 L Blood Pressure [Ri ght Upper Arm] Pulse Oximetry 100 97 97 Oxygen Delivery Me thod Room Air Room Air Room Air 04/01/24 20:30 04/01/24 20:45 04/01/24 21:14 Temperature 98.7 F Pulse Rate 100 197 H 98 Pulse Rate [Pulse Oximeter] Respiratory Rate 16 16 16 Blood Pressure 103/56 L 106/61 98/56 L Blood Pressure [Le ft Arm] Blood Pressure [Ri ght Upper Arm] Pulse Oximetry 98 95 100 Oxygen Delivery Me thod Room Air Room Air Room Air 04/01/24 21:15 04/01/24 21:45 04/01/24 22:30 Temperature 99 F Pulse Rate 119 H 115 H 112 H Pulse Rate [Pulse Oximeter] Respiratory Rate 16 16 16 Blood Pressure 103/52 L 102/56 L 101/54 L Blood Pressure [Le ft Arm] Blood Pressure [Ri ght Upper Arm] Pulse Oximetry 100 97 97 Oxygen Delivery Me thod Room Air Room Air Room Air 04/01/24 23:00 04/01/24 23:00 04/01/24 23:00 Temperature 98.6 F Pulse Rate 100 111 H Pulse Rate [Pulse Oximeter] 100 Respiratory Rate 14 14 Blood Pressure 98/60 Blood Pressure [Le ft Arm] Blood Pressure [Ri ght Upper Arm] Pulse Oximetry 96 Oxygen Delivery Me thod Room Air 04/01/24 23:00 04/02/24 00:13 04/02/24 01:03 Temperature 98.2 F 98.1 F Pulse Rate 98 106 H Pulse Rate [Pulse Oximeter] Respiratory Rate 14 14 16 Blood Pressure 93/57 L 99/63 Blood Pressure [Le ft Arm] Blood Pressure [Ri ght Upper Arm] Pulse Oximetry 96 95 95 Oxygen Delivery Me thod Room Air Room Air Room Air 04/02/24 02:05 04/02/24 03:00 04/02/24 03:00 Temperature 98.1 F Pulse Rate 101 H 104 H Pulse Rate [Pulse Oximeter] Respiratory Rate 16 16 Blood Pressure 102/62 Blood Pressure [Le ft Arm] Blood Pressure [Ri ght Upper Arm] Pulse Oximetry 94 Oxygen Delivery Me thod Room Air 04/02/24 04:00 04/02/24 06:00 Temperature 98.3 F 98.9 F Pulse Rate Pulse Rate [Pulse Oximeter] 113 H 113 H Respiratory Rate 16 16 Blood Pressure Blood Pressure [Le ft Arm] 99/62 94/64 Blood Pressure [Ri ght Upper Arm] Pulse Oximetry 95 97 Oxygen Delivery Me thod Room Air Room Air Progress Note:A&P Assessment and plan (1) S/P exploratory laparotomy: Status: Acute Assessment and Plan: 38-year-old female s/p exploratory laparotomy, small-bowel resection, and open right inguinal hernia repair without mesh for strangulated right inguinal hernia POD 1. Patient did well overnight. Her sodium is coming up slowly and today is 127. Hospitalist is helping us manage in her hyponatremia. Will leave the Fritz catheter in for another day to keep benign her urine output with fluid resuscitation. Patient is slightly tachycardic which is most likely due to systemic inflammatory response syndrome and dehydration. Will keep her on prophylactic antibiotics for now due to stool contamination in the right inguina l incision. Will keep NPO with ice chips for comfort. (2) S/P right inguinal hernia repair: Status: Acute
--- NOTE | 2024-04-02 09:17 | NUTR.NU ---
RDN with nutrition screen related to positive MST for poor appetite and weight loss recently. Patient post op day 1 of diagnostic laparoscopy, exploratory laparotomy, open right femoral hernia repair without mesh, small-bowel resection with primary anastomosis. Current diet is NPO. No appropriate to visit with patient at this time. RDN will continue to monitor and visit with patient at later date, when appropriate.
[2024-04-02] MEDS: ENOXAPARIN 40 MG/0.4 ML INJ SUBCUT (10:23)
--- NOTE | 2024-04-02 13:02 | P.IMPN_ITS ---
Progress Note: A&P Assessment and plan (1) Small bowel obstruction: Problem details: Onset March 20. Constipation, vomiting, anorexia, malnutrition, dehydration all developed from small-bowel obstruction from incarcerated femoral hernia Status: Acute (2) Incarcerated hernia: Problem details: - 04/01/24 status post diagnostic laparoscopy, exploratory laparotomy, open right femoral hernia repair without mesh, small-bowel resection with primary anastomosis. - cares per General surgery. - NG tube, NPO Status: Acute (3) Hypokalemia: Problem details: Corrected, follow Status: Acute (4) Hyponatremia: Problem details: Slowly correcting. Status: Acute (5) Hypocalcemia: Problem details: Slowly correcting Status: Acute (6) Dehydration: Problem details: Improving. Fluid boluses as needed Status: Acute (7) Malnutrition due to starvation: Problem details: Due to minimal nutritional intake for 12 days prior to admission Status: Acute (8) S/P right inguinal hernia repair: Problem details: right femoral hernia repair without mesh Status: Acute (9) S/P exploratory laparotomy: Problem details: small bowel resection Status: Acute Plan Continue in hospital for management of surgical recovery with NG tube, Fritz catheter, IV fluids and antibiotics, monitoring and managing electrolytes. Time Spent With Patient Total time spent: 60 minutes Subjective Date Seen: 04/02/24 Interval history: 38-year-old female, previously healthy, admitted to the hospital with a 12 day history of right groin pain and swelling, vomiting and constipation. With this she became profoundly weak as well. Evaluation emergency room showed that she had an incarcerated hernia. She also had severe dehydration and marked electrolyte abnormalities. She was taken to the operating room by Dr. Mensah and had hernia repair with small bowel resection an anastomosis. Prior to and after surgery she had fluid resuscitation and correction of electrolytes. NG tube and Fritz catheter are present. Today she reports feeling much better. She reports being thirsty. Pain is much better. No shortness of breath. She has been up in chair and walking. Exam Narrative: Exam Narrative: She is alert and appears in no distress. Mood and affect are bright. She gives her own history. NG tube is draining greenish colored clear fluid. Fritz catheter is draining fairly dark yellow urine. Respirations are clear to auscultation. Cardiovascular: S1, S2, regular rate and rhythm. Abdomen: Bowel sounds are absent. Abdomen is soft she has moderate right lower quadrant tenderness can not consistent with her postoperative status. Extremities without edema. Good peripheral pulses. Const: Vital Signs, click to edit/add: Vital Signs - 24 hr 04/01/24 14:58 04/01/24 19:05 04/01/24 19:10 Temperature 98.7 F Pulse Rate 100 93 Pulse Rate [Pulse Oximeter] 107 H Respiratory Rate 18 16 18 Blood Pressure 115/55 L 114/57 L Blood Pressure [Le ft Arm] Blood Pressure [Ri ght Upper Arm] 122/80 Pulse Oximetry 98 97 99 Oxygen Delivery Me thod Room Air Room Air 04/01/24 19:15 04/01/24 19:20 04/01/24 19:25 Temperature Pulse Rate 98 95 97 Pulse Rate [Pulse Oximeter] Respiratory Rate 16 16 16 Blood Pressure 111/59 L 114/58 L 113/60 Blood Pressure [Le ft Arm] Blood Pressure [Ri ght Upper Arm] Pulse Oximetry 97 99 99 Oxygen Delivery Me thod Room Air Room Air Room Air 04/01/24 19:30 04/01/24 20:00 04/01/24 20:13 Temperature 98.3 F 98.7 F 98.7 F Pulse Rate 90 98 Pulse Rate [Pulse Oximeter] 99 Respiratory Rate 16 16 16 Blood Pressure 113/59 L 103/60 Blood Pressure [Le ft Arm] 98/56 L Blood Pressure [Ri ght Upper Arm] Pulse Oximetry 99 100 100 Oxygen Delivery Me thod Room Air Room Air Room Air 04/01/24 20:13 04/01/24 20:15 04/01/24 20:30 Temperature Pulse Rate 105 H 100 Pulse Rate [Pulse Oximeter] Respiratory Rate 16 16 Blood Pressure 102/54 L 103/56 L Blood Pressure [Le ft Arm] Blood Pressure [Ri ght Upper Arm] Pulse Oximetry 97 97 98 Oxygen Delivery Me thod Room Air Room Air Room Air 04/01/24 20:45 04/01/24 21:14 04/01/24 21:15 Temperature 98.7 F Pulse Rate 197 H 98 119 H Pulse Rate [Pulse Oximeter] Respiratory Rate 16 16 16 Blood Pressure 106/61 98/56 L 103/52 L Blood Pressure [Le ft Arm] Blood Pressure [Ri ght Upper Arm] Pulse Oximetry 95 100 100 Oxygen Delivery Me thod Room Air Room Air Room Air 04/01/24 21:45 07/23/24 22:30 04/01/24 23:00 Temperature 99 F 98.6 F Pulse Rate 115 H 112 H 100 Pulse Rate [Pulse Oximeter] Respiratory Rate 16 16 14 Blood Pressure 102/56 L 101/54 L 98/60 Blood Pressure [Le ft Arm] Blood Pressure [Ri ght Upper Arm] Pulse Oximetry 97 97 96 Oxygen Delivery Me thod Room Air Room Air Room Air 04/01/24 23:00 04/01/24 23:00 04/01/24 23:00 Temperature Pulse Rate 111 H Pulse Rate [Pulse Oximeter] 100 Respiratory Rate 14 14 Blood Pressure Blood Pressure [Le ft Arm] Blood Pressure [Ri ght Upper Arm] Pulse Oximetry 96 Oxygen Delivery Me thod Room Air 04/02/24 00:13 04/02/24 01:03 04/02/24 02:05 Temperature 98.2 F 98.1 F 98.1 F Pulse Rate 98 106 H 101 H Pulse Rate [Pulse Oximeter] Respiratory Rate 14 16 16 Blood Pressure 93/57 L 99/63 102/62 Blood Pressure [Le ft Arm] Blood Pressure [Ri ght Upper Arm] Pulse Oximetry 95 95 94 Oxygen Delivery Me thod Room Air Room Air Room Air 04/02/24 03:00 04/02/24 03:00 04/02/24 04:00 Temperature 98.3 F Pulse Rate 104 H Pulse Rate [Pulse Oximeter] 113 H Respiratory Rate 16 16 Blood Pressure Blood Pressure [Le ft Arm] 99/62 Blood Pressure [Ri ght Upper Arm] Pulse Oximetry 95 Oxygen Delivery Me thod Room Air 04/02/24 06:00 04/02/24 07:00 04/02/24 07:45 Temperature 98.9 F Pulse Rate 107 H Pulse Rate [Pulse Oximeter] 113 H 101 H Respiratory Rate 16 16 Blood Pressure Blood Pressure [Le ft Arm] 94/64 Blood Pressure [Ri ght Upper Arm] Pulse Oximetry 97 Oxygen Delivery Me thod Room Air 04/02/24 07:45 04/02/24 08:00 04/02/24 10:00 Temperature 98.3 F 98.9 F Pulse Rate Pulse Rate [Pulse Oximeter] 101 H 107 H Respiratory Rate 16 16 16 Blood Pressure Blood Pressure [Le ft Arm] 129/76 115/75 Blood Pressure [Ri ght Upper Arm] Pulse Oximetry 93 93 95 Oxygen Delivery Me thod Room Air Room Air Room Air Documenting provider has reviewed patient's vital signs: yes Labs Labs: Laboratory Results - last 24 hr 04/01/24 04/01/24 04/01/24 13:00 13:36 14:36 WBC 18.75 H 21.43 H RBC 4.88 4.57 Hgb 14.3 13.4 Hct 40.1 37.9 MCV 82 83 MCH 29 29 MCHC 36 35 RDW Coeff of Hoang 11.8 11.8 Plt Count 453 H 455 H Neut % (Auto) 85.2 H 86.0 H Lymph % (Auto) 7.3 L 7.4 L [place] % (Auto) 6.8 6.0 Eos % (Auto) 0.2 0.1 Baso % (Auto) 0.2 0.2 Neut # (Auto) 16.00 H 18.40 H Lymph # (Auto) 1.40 1.60 [place] # (Auto) 1.30 H 1.30 H Eos # (Auto) 0.00 0.00 Baso # (Auto) 0.00 0.00 Abs Immat Gran (auto) 0.10 0.10 Imm/Tot Granulo (auto) 0.3 0.3 Sodium 123 L* 124 L* Potassium 3.1 L Chloride 79 L Carbon Dioxide 29 Anion Gap 15 BUN 13 Creatinine 0.7 Estimated Creat Clear 93.63 Estimated GFR 113 Glucose 99 Lactate 0.8 Calcium 9.4 Ionized Calcium Erica Phosphorus Magnesium Troponin I Lab Acknowledgement 04/01/24 04/01/24 04/01/24 17:30 20:38 20:43 WBC 17.35 H RBC 3.57 L Hgb 10.4 L Hct 30.0 L MCV 84 MCH 29 MCHC 35 RDW Coeff of Hoang 11.8 Plt Count 355 Neut % (Auto) 84.9 H Lymph % (Auto) 8.1 L [place] % (Auto) 6.2 Eos % (Auto) 0.2 Baso % (Auto) 0.2 Neut # (Auto) 14.70 H Lymph # (Auto) 1.40 [place]oshone # (Auto) 1.10 H Eos # (Auto) 0.00 Baso # (Auto) 0.00 Abs Immat Gran (auto) 0.10 Imm/Tot Granulo (auto) 0.4 Sodium 123 L* 127 L Potassium 3.1 L Chloride 91 L Carbon Dioxide 23 Anion Gap 9 BUN 11 Creatinine 0.5 Estimated Creat Clear 131.09 Estimated GFR 123 Glucose 107 Lactate 0.9 Calcium 7.4 L Ionized Calcium Erica Phosphorus Magnesium 3.2 H Troponin I 0.02 Lab Acknowledgement Test Added 04/01/24 04/01/24 04/02/24 20:46 23:03 06:01 WBC 19.13 H RBC 4.03 Hgb 11.9 L Hct 34.3 MCV 85 MCH 30 MCHC 35 RDW Coeff of Hoang 12.3 Plt Count 383 Neut % (Auto) 89.2 H Lymph % (Auto) 7.2 L [place] % (Auto) 3.0 Eos % (Auto) 0.1 Baso % (Auto) 0.2 Neut # (Auto) 17.10 H Lymph # (Auto) 1.40 [place] # (Auto) 0.60 Eos # (Auto) 0.00 Baso # (Auto) 0.00 Abs Immat Gran (auto) 0.10 Imm/Tot Granulo (auto) 0.3 Sodium 125 L 127 L Potassium 3.6 Chloride 95 L Carbon Dioxide 26 Anion Gap 6 L BUN 8 Creatinine 0.6 Estimated Creat Clear 109.88 Estimated GFR 118 Glucose 86 Lactate Calcium 7.9 L Ionized Calcium Erica 1.00 L 1.08 L Phosphorus 3.8 Magnesium 2.1 Troponin I Lab Acknowledgement
[2024-04-02 13:51] LABS: Sodium* 128 mmol/L (135-149)
[2024-04-02] MEDS: 5 % DEXTROSE IN LAC RINGER'S 1,000 ML 125 ML IV ×2 (14:46→22:47)
--- NOTE | 2024-04-02 14:59 | PC.NURSE ---
PATIENT AFEBRILE. BOWEL SOUNDS RARE AND DENIES PASSING GAS. NG TO LEFT NARE AT 70. 400ML OUTPUT THIS SHIFT. PATIENT HAS DENIED NAUSEA AND PAIN CONTROLLED WITH DILAUDID IV AND ICE PACK TO ABDOMEN. DRESSING TO ABDOMEN CDI. UP WITH A1-2 TO RECLINER AND AMBULATED IN HALLWAY. DENIED FEELING DIZZY OR LIGHTHEADED.
[2024-04-02] MEDS: LACTATED RINGERS 1000 ML 1,000 ML IV (17:57)
--- NOTE | 2024-04-02 18:38 | PC.NURSE ---
Pt pleasant and conversational. Denies passing gas, bowels absent to rare. Ice chips for comfort, denies nausea, no vomiting. Abdominal dressing intact. Educated on use of pillow for splinting when moving in/out of bed. Ambulated 100 feet in juarez, elevated HR noted on telemetry, Fluid bolus ordered by Dr. Fournier, given per NOV. Urine and NG output documented, see charting. NG in left nare @70, RightSpot pH 4.5.
[2024-04-02] MEDS: LACTATED RINGERS 1000 ML 1,000 ML 500 ML IV (20:09)
[2024-04-02] MEDS: CALCIUM GLUC 1,000MG/50 ML 1,000 MG/50 ML BAG 100 MG IVPB (20:28)
[2024-04-02 20:40] LABS: Sodium* 127 mmol/L (135-149)
[2024-04-03] VITALS (10 sets, daily range): BP systolic 92–111; BP diastolic 51–67; PULSE 9–113; RESP 14–18; TEMP 36.8–37.7; O2SAT 94–99
[2024-04-03] MEDS: HYDROmorphone 0.5 mg/0.5 ml inj IVP ×8 (01:42→23:33)
[2024-04-03] MEDS: PIPERACILLIN/TAZOBACTAM 3.375 GM in 0.9 % SODIUM CHLORIDE Mini-bag 100 ML IVPB ×4 (03:35→22:16)
--- NOTE | 2024-04-03 05:41 | PC.NURSE ---
[id number]: Pt is alert, oriented, and conversational during shift. Pt denies SOB, CP, N/V. Pt expressed pain throughout the shift. PRN dilaudid and ice chips were given. Relief noted by Pt. Abdominal dressing dry and intact. Bowel sounds present on auscultation. Pt is not passing flatus but states she feels ?gurgles.? Pt uses call light appropriately. Urine and NG output documented, see charting. ?
[2024-04-03 06:08] LABS: Basophils Percent Auto 0.1 % (0.0-3.0); Eosinophils Percent Auto 0.1 % (0.0-7.0); Hemoglobin* 9.8 gm/dL (12.0-16.0); Lymphocytes Percent Auto 6.1 % (20-44); Mean Corpuscular HGB Conc 34 gm/dL (32-36); Mean Corpuscular Hemoglobin 29 pg (26-34); Mean Corpuscular Volume 87 fL (80-100); Monocytes Percent Auto 4.2 % (0.0-11.0); Neutrophils Percent Auto 88.5 % (42.0-72.0); Platelet Count* 338 K/uL (140-440); RDW Coefficient of Variation % 12.6 % (11.5-15.5); Red Blood Count 3.35 m/uL (4.00-5.20); White Blood Count* 15.55 K/uL (4.50-11.00)
[2024-04-03 06:10] LABS: Slide Review Reflex No
[2024-04-03 06:20] LABS: Chloride* 98 mmol/L (96-114)
[2024-04-03 06:21] LABS: Sodium* 128 mmol/L (135-149)
[2024-04-03 06:23] LABS: Creatinine* 0.5 mg/dL (0.5-1.5); Est. Creatinine Clearance* 140.05; Estimated Glomerular Filt Rate 123 ml/min
[2024-04-03 06:24] LABS: Anion Gap 2 mEq/L (7-15); Blood Urea Nitrogen* 4 mg/dL (5-24); Carbon Dioxide* 28 mmol/L (20-32)
[2024-04-03 06:25] LABS: Calcium* 7.3 mg/dL (8.4-10.6); Glucose* 128 mg/dL (60-115)
[2024-04-03 06:26] LABS: Potassium* 2.8 mmol/L (3.6-5.1)
[2024-04-03] MEDS: POTASSIUM CHLORIDE 10 MEQ/100 ML PIGGYBACK 75 MEQ IVPB ×4 (06:39→11:57)
[2024-04-03] MEDS: 5 % DEXTROSE IN LAC RINGER'S 1,000 ML 125 ML IV (06:40)
[2024-04-03 07:00] LABS: Magnesium* 1.7 mg/dL (1.5-2.6)
--- NOTE | 2024-04-03 07:09 | P.GSPN_ITS ---
Subjective Subjective Date Seen: 04/03/24 Interval history: Patient is doing well. She still complains of abdominal pain that is controlled with pain medications. She walked 3 times yesterday. Her urine output was about 900. NG tube put out 1300 mL yesterday and 600 since midnight. The NG tube output is clearing up. Patient denies any nausea vomiting. Denies passing gas. Exam Narrative: Exam Narrative: Abdomen is soft, slightly distended, tender to palpation throughout the abdomen, no peritoneal signs, surgical dressings were removed and midline incision and right lower quadrant incisions are covered with intact klever. There is no surrounding erythema. Const: Vital Signs, click to edit/add: Vital Signs - 24 hr 04/02/24 07:45 04/02/24 07:45 04/02/24 08:00 Temperature 98.3 F Pulse Rate Pulse Rate [Pulse Oximeter] 101 H 101 H Respiratory Rate 16 16 16 Blood Pressure [Le ft Arm] 129/76 Pulse Oximetry 93 [facility] 04/02/24 10:00 04/02/24 15:00 04/02/24 15:00 Temperature 98.9 F Pulse Rate 111 H Pulse Rate [Pulse Oximeter] 107 H Respiratory Rate 16 18 Blood Pressure [Le ft Arm] 115/75 Pulse Oximetry 95 95 [facility] 04/02/24 16:20 04/02/24 16:20 04/02/24 19:43 Temperature 98.4 F 99.7 F H Pulse Rate Pulse Rate [Pulse Oximeter] 114 H 114 H 115 H Respiratory Rate 18 16 18 Blood Pressure [Le ft Arm] 123/68 109/77 Pulse Oximetry 96 99 [facility] 04/02/24 20:01 04/02/24 23:00 04/02/24 23:00 Temperature 98.7 F 98.4 F Pulse Rate Pulse Rate [Pulse Oximeter] 113 H Respiratory Rate 16 Blood Pressure [Le ft Arm] 102/62 Pulse Oximetry 97 [facility] 04/02/24 23:00 04/03/24 01:50 04/03/24 03:00 Temperature 98.3 F 98.2 F Pulse Rate 106 H Pulse Rate [Pulse Oximeter] 109 H 109 H Respiratory Rate 14 14 Blood Pressure [Le ft Arm] 101/57 L 98/53 L Pulse Oximetry 96 94 Oxygen Delivery Me thod Room Air Room Air Progress Note:A&P Assessment and plan (1) S/P exploratory laparotomy: Status: Acute Assessment and Plan: 38-year-old female s/p exploratory laparotomy, small-bowel resection and open right inguinal hernia repair POD 2. Will remove patient's Fritz today. Will continue with NG tube and NPO until return of bowel function. Patient's sodium today was 128 and was slowly is replacing it. Patient was hypokalemic today and that is been replaced. I recommended to continue ambulating and slowly work on her hyponatremia. Hospitalist is helping with that. (2) S/P right inguinal hernia repair: Status: Acute
[2024-04-03] MEDS: 5 % DEX/0.9 SOD CHL+KCL 20 mEq 1,000 ML 125 ML IV ×2 (08:01→20:00)
[2024-04-03] MEDS: ENOXAPARIN 40 MG/0.4 ML INJ SUBCUT (09:40)
--- NOTE | 2024-04-03 09:45 | P.IMPN_ITS ---
Progress Note: A&P Assessment and plan (1) Small bowel obstruction: Problem details: Onset March 20. Constipation, vomiting, anorexia, malnutrition, dehydration all developed from small-bowel obstruction from incarcerated femoral hernia Status: Acute (2) Incarcerated hernia: Problem details: - 04/01/24 status post diagnostic laparoscopy, exploratory laparotomy, open right femoral hernia repair without mesh, small-bowel resection with primary anastomosis. - cares per General surgery. - NG tube, NPO. - will attempt removal of urethral catheter morning of 04/03/2024. - increased activity to ambulating safely 6 times daily minimum, twice in the morning, twice in the afternoon, twice in the evening. Status: Acute (3) S/P exploratory laparotomy: Problem details: small bowel resection 04/01/2024. Status: Acute (4) S/P right inguinal hernia repair: Problem details: right femoral hernia repair without mesh 04/01/2024. Status: Acute (5) Dehydration: Problem details: Improving. Fluid boluses as needed to maintain adequate urine output and safe systolic blood pressures. Status: Acute (6) Malnutrition due to starvation: Problem details: - Due to minimal nutritional intake for 12 days prior to admission. - Continue with dextrose IV solution while NPO. - consider advancing diet as deemed appropriate per her general surgeon, verses adding parental nutritional support if warranted. Status: Acute (7) Hyponatremia: Problem details: Slowly correcting. Will switch from lactated Ringer's IV fluid to normal saline IV fluid. Status: Acute (8) Hypokalemia: Problem details: Corrected, follow. Added 20 mEq of potassium per L of IV fluid today. Intermittent bumps of potassium chloride IV as needed. Status: Acute (9) Hypocalcemia: Problem details: Slowly correcting. Status: Acute Plan 1. Reviewed impression with patient. 2. Answered patient's questions. 3. Continue to work with General surgery. 4. Patient agreeable with above stated plans and recommendations. Time Spent With Patient Total time spent: 30 minutes Subjective Date Seen: 04/03/24 Interval history: Hospital day 3. Postoperative day 2, status post exploratory laparotomy, partial small-bowel resection of terminal ileum, repair of strangulated right inguinal hernia. Still NPO. NG tube in place. NG tube output yesterday 1300 mL. Urine output yesterday 900 mL. Receiving lactated Ringer's with dextrose at 125 mL/hour. Received about 5000 mL of fluids yesterday. Weight today 58.2 kg, yesterday 54.7 kg, and admission weight of 54.4 kg. A little less pain today. Tolerating increased activities in her room. Notes increased swelling in hands and feet. Exam Narrative: Exam Narrative: I examine her in her hospital room. Appears comfortable and in no acute distress. NG tube in place with light tea-colored output. Urethral catheter in place with clear urine output. Vision and hearing are adequate. Alert and oriented to self, place, time, situation. Friendly, articulate, cooperative. Midline trachea. No JVD or hepatojugular reflux. Lungs are clear to auscultation without wheezing, rhonchi, or rales. Chest wall excursions are full. Heart tones with regular rhythm, heart rate of about 110. PMI not laterally displaced. Abdomen is quiet. Mild distention. Mild to moderate tenderness to palpation. No rebound or guarding. Moves all 4 extremities. Cranial nerves 3-12 grossly normal. No tremor, asterixis, or ataxia. Capillary refill less than 3 seconds in digits of hands and feet. Minimal interstitial edema in hands and feet. Const: Vital Signs, click to edit/add: Vital Signs - 24 hr 04/02/24 10:00 04/02/24 15:00 04/02/24 15:00 Temperature 98.9 F Pulse Rate 111 H Pulse Rate [Pulse Oximeter] 107 H Respiratory Rate 16 18 Blood Pressure [Le ft Arm] 115/75 Pulse Oximetry 95 [facility] 04/02/24 16:20 04/02/24 16:20 04/02/24 19:43 Temperature 98.4 F 99.7 F H Pulse Rate Pulse Rate [Pulse Oximeter] 114 H 114 H 115 H Respiratory Rate 18 16 18 Blood Pressure [Le ft Arm] 123/68 109/77 Pulse Oximetry 96 99 [facility] 04/02/24 20:01 04/02/24 23:00 04/02/24 23:00 Temperature 98.7 F 98.4 F Pulse Rate Pulse Rate [Pulse Oximeter] 113 H Respiratory Rate 16 Blood Pressure [Le ft Arm] 102/62 Pulse Oximetry 97 [facility] 04/02/24 23:00 04/03/24 01:50 04/03/24 03:00 Temperature 98.3 F 98.2 F Pulse Rate 106 H Pulse Rate [Pulse Oximeter] 109 H 109 H Respiratory Rate 14 14 Blood Pressure [Le ft Arm] 101/57 L 98/53 L Pulse Oximetry 96 94 Oxygen Delivery Me thod Room Air Room Air 04/03/24 08:05 04/03/24 08:15 04/03/24 08:15 Temperature 99.8 F H Pulse Rate Pulse Rate [Pulse Oximeter] 113 H 113 H Respiratory Rate 18 Blood Pressure [Le ft Arm] 99/54 L Pulse Oximetry 97 97 Oxygen Delivery Me thod Room Air Room Air 04/03/24 08:43 Temperature Pulse Rate 111 H Pulse Rate [Pulse Oximeter] Respiratory Rate Blood Pressure [Le ft Arm] Pulse Oximetry Oxygen Delivery Me thod Labs Labs: Laboratory Results - last 24 hr 04/02/24 04/02/24 04/03/24 13:17 20:23 05:58 WBC 15.55 H RBC 3.35 L Hgb 9.8 L Hct 29.0 L MCV 87 MCH 29 MCHC 34 RDW Coeff of Hoang 12.6 Plt Count 338 Neut % (Auto) 88.5 H Lymph % (Auto) 6.1 L [place] % (Auto) 4.2 Eos % (Auto) 0.1 Baso % (Auto) 0.1 Neut # (Auto) 13.80 H Lymph # (Auto) 0.90 [place] # (Auto) 0.70 Eos # (Auto) 0.00 Baso # (Auto) 0.00 Abs Immat Gran (auto) 0.20 Imm/Tot Granulo (auto) 1.0 Sodium 128 L 127 L 128 L Potassium 2.8 L* Chloride 98 Carbon Dioxide 28 Anion Gap 2 L BUN 4 L Creatinine 0.5 Estimated Creat Clear 140.05 Estimated GFR 123 Glucose 128 H Calcium 7.3 L Magnesium 1.7
[2024-04-03] MEDS: 0.9 % SODIUM CHLORIDE 500 ML 500 ML IV (11:57)
[2024-04-03 12:22] LABS: Potassium* 3.3 mmol/L (3.6-5.1); Sodium* 128 mmol/L (135-149)
[2024-04-03] MEDS: BENZOCAINE/MENTHOL 1 EACH LOZENGE MUCOUS MEM ×4 (12:56→23:38)
--- NOTE | 2024-04-03 13:23 | PC.NURSE ---
7-1300: Patient is pleasant... VSS on RA, reports moderate pain in her abdomen, controlled with PRN Dilaudid and an ice pack. Tolerating ice chips with no Nausea. NG to LIS @ 70cm. Fritz removed this AM, voided 300 post removal. Medial/ lower incision are open to air CDI with klever. Bowel sounds present, although no flatus. Up and walking as tolerated, up in the chair moving well with Ax1 SBA. K bumps infused, bolus running now. NPO. SCDS in place. Will make needs known. Afsaneh RN, BSN
--- NOTE | 2024-04-03 13:26 | PC.NURSE ---
650 of green gastric contents out of NG prior to 1300.
[2024-04-04] VITALS (7 sets, daily range): BP systolic 93–108; BP diastolic 56–72; PULSE 68–105; RESP 18–24; TEMP 36.8–37.6; O2SAT 92–98
[2024-04-04] MEDS: HYDROmorphone 0.5 mg/0.5 ml inj IVP ×4 (02:25→14:30)
[2024-04-04] MEDS: 5 % DEX/0.9 SOD CHL+KCL 20 mEq 1,000 ML 125 ML IV ×2 (04:01→19:19)
[2024-04-04] MEDS: PIPERACILLIN/TAZOBACTAM 3.375 GM in 0.9 % SODIUM CHLORIDE Mini-bag 100 ML IVPB ×4 (04:02→21:42)
[2024-04-04] MEDS: BENZOCAINE/MENTHOL 1 EACH LOZENGE MUCOUS MEM ×5 (04:07→21:52)
--- NOTE | 2024-04-04 05:20 | PC.NURSE ---
SHIFT NOTE : Pt A&O, pleasant. PRN Dilaudid given for pain with pt reporting adequate relief, ice pack to op site. Surgical incisions RAYRAY with no drainage noted. Bowel sounds present in all four quadrants, pt belching but not passing gas yet, up SBA to BR, walked twice last evening. NG patent, brown output. Up to BR SBA with adequate urine output. Denies N/V, SOB, and CP. Tele reads NSR. VSS on RA, independent and diligent with IS.
[2024-04-04 06:26] LABS: Basophils Absolute Auto 0.01 K/uL (0.00-0.30); Basophils Percent Auto 0.1 % (0.0-3.0); Eosinophils Absolute Auto 0.22 K/uL (0.00-0.50); Eosinophils Percent Auto 2.2 % (0.0-7.0); Hematocrit 29.3 % (33.0-51.0); Hemoglobin* 9.6 gm/dL (12.0-16.0); Immature Granulocytes Abs Auto 0.04 K/uL (0.00-0.30); Immature Granulocytes Pct Auto 0.4 %; Lymphocytes Percent Auto 6.6 % (20-44); Mean Corpuscular HGB Conc 33 gm/dL (32-36); Mean Corpuscular Hemoglobin 29 pg (26-34); Mean Corpuscular Volume 89 fL (80-100); Monocytes Percent Auto 5.4 % (0.0-11.0); Neutrophils Percent Auto 85.3 % (42.0-72.0); Platelet Count* 345 K/uL (140-440); Red Blood Count 3.28 m/uL (4.00-5.20); White Blood Count* 10.14 K/uL (4.50-11.00)
[2024-04-04 06:28] LABS: Slide Review Reflex No
[2024-04-04 06:44] LABS: Chloride* 104 mmol/L (96-114); Potassium* 3.1 mmol/L (3.6-5.1); Sodium* 134 mmol/L (135-149)
[2024-04-04 06:47] LABS: Anion Gap 1 mEq/L (7-15); Blood Urea Nitrogen* 4 mg/dL (5-24); Carbon Dioxide* 29 mmol/L (20-32); Creatinine* 0.5 mg/dL (0.5-1.5); Est. Creatinine Clearance* 138.73; Estimated Glomerular Filt Rate 123 ml/min; Glucose* 122 mg/dL (60-115)
[2024-04-04 06:48] LABS: Calcium* 7.7 mg/dL (8.4-10.6)
[2024-04-04] MEDS: POTASSIUM CHLORIDE 10 MEQ/100 ML PIGGYBACK 100 MEQ IVPB (07:50)
--- NOTE | 2024-04-04 08:25 | PM.GSPN ---
Subjective Subjective Date Seen: 04/04/24 Interval history: Patient is doing well postoperatively. She ambulated 4 times. She denies nausea vomiting. She is not passing gas yet. She had great urine output yesterday. NG tube with over 2300 mL of fluid yesterday. Her sodium is 134 today and potassium 3.1. She states that her abdominal pain is barely present. Exam Narrative: Exam Narrative: Abdomen is soft, not distended, not tender to palpation, surgical incisions are with intact klever with no surrounding erythema. Const: Vital Signs, click to edit/add: Vital Signs - 24 hr 04/03/24 08:43 04/03/24 11:35 04/03/24 15:00 Temperature 99.4 F 99.6 F Pulse Rate 111 H Pulse Rate [Pulse Oximeter] 109 H 108 H Respiratory Rate 16 18 Blood Pressure [Le ft Arm] 92/51 L 102/58 L Pulse Oximetry 97 96 Oxygen Delivery Me thod Room Air Room Air 04/03/24 15:00 04/03/24 15:00 04/03/24 17:58 Temperature Pulse Rate 9 L Pulse Rate [Pulse Oximeter] 108 H Respiratory Rate 18 18 Blood Pressure [Le ft Arm] Pulse Oximetry 96 Oxygen Delivery Me thod Room Air 04/03/24 20:00 04/03/24 23:00 04/03/24 23:00 Temperature 98.8 F Pulse Rate 107 H Pulse Rate [Pulse Oximeter] Respiratory Rate 18 18 Blood Pressure [Le ft Arm] 98/62 Pulse Oximetry 99 [address] [facility] 04/03/24 23:00 04/03/24 23:00 04/04/24 03:00 Temperature 99 F 99.1 F Pulse Rate Pulse Rate [Pulse Oximeter] 108 H 108 H 98 Respiratory Rate 18 18 18 Blood Pressure [Le ft Arm] 111/67 99/59 L Pulse Oximetry 98 98 Oxygen Delivery [place] thod Room Air Room Air 04/04/24 07:00 Temperature 98.3 F Pulse Rate Pulse Rate [Pulse Oximeter] 97 Respiratory Rate 20 Blood Pressure [Le ft Arm] 108/72 Pulse Oximetry 98 Oxygen Delivery [place] thod Room Air Progress Note:A&P Assessment and plan (1) S/P exploratory laparotomy: Status: Acute Assessment and Plan: 38-year-old female s/p exploratory laparotomy, small-bowel resection, and open right inguinal hernia repair for strangulated right inguinal hernia POD 3. Patient's hyponatremia is improving. She continues to be hypokalemic and will replace it today. We will leave NG tube in place until she starts passing gas. Patient is on prophylactic antibiotics and on Lovenox for DVT prophylaxis. (2) S/P right inguinal hernia repair: Status: Acute
--- NOTE | 2024-04-04 09:19 | NUTR.NU ---
RDN with nutrition screen related to positive MST for poor appetite and recent weight loss. Patient post op day 3 of diagnostic laparoscopy, exploratory laparotomy, open right femoral hernia repair, small-bowel resection with primary anastomosis. Current diet continues to be NPO. Patient did not have bowel movements for about 10 days prior to arrival, and no oral intake for about 1 week prior to arrival. Currently, patient has been NPO/low oral intake for about 10 days per RDN estimation. If patient is not advancing and tolerating diet in the next 2-3 days, RDN recommends initiating PPN for nutrition. Not appropriate to visit with patient at this time due to NPO status. RDN will continue to monitor and visit with patient at later date, when appropriate.
[2024-04-04] MEDS: POTAS 106 MEQ IVPB ×3 (09:33→12:58)
[2024-04-04] MEDS: ENOXAPARIN 40 MG/0.4 ML INJ SUBCUT (09:33)
--- NOTE | 2024-04-04 10:24 | P.IMPN_ITS ---
Progress Note: A&P Assessment and plan (1) S/P exploratory laparotomy: Problem details: small bowel resection 04/01/2024. Status: Acute (2) S/P right inguinal hernia repair: Problem details: right femoral hernia repair without mesh 04/01/2024. Status: Acute (3) Malnutrition due to starvation: Problem details: - Due to minimal nutritional intake for 12 days prior to admission. - Continue with dextrose IV solution while NPO. - consider advancing diet as deemed appropriate per her general surgeon, verses adding parental nutritional support if warranted as early as 04/07/2024 if continues to be NPO. Status: Acute (4) Hyponatremia: Problem details: Slowly correcting. Was having hyponatremia when on LR. Is now on normal saline IV fluid. Status: Acute (5) Hypokalemia: Problem details: Correcting, follow. Added 20 mEq of potassium per L of IV fluid on 04/03/2024. Intermittent bumps of potassium chloride IV as needed. Status: Acute (6) Small bowel obstruction: Problem details: Onset March 20. Constipation, vomiting, anorexia, malnutrition, dehydration all developed from small-bowel obstruction from incarcerated femoral hernia Status: Acute (7) Incarcerated hernia: Problem details: - 04/01/24 status post diagnostic laparoscopy, exploratory laparotomy, open right femoral hernia repair without mesh, small-bowel resection with primary anastomosis. - cares per General surgery. - NG tube, NPO. - will attempt removal of urethral catheter morning of 04/03/2024. - increased activity to ambulating safely 6 times daily minimum, twice in the morning, twice in the afternoon, twice in the evening. Status: Acute Plan 1. Reviewed impression and plans with patient. 2. Answered her questions. 3. Patient agreeable. 4. Hospitalist will continue to follow while patient is in hospital at this time. Time Spent With Patient Total time spent: 30 minute Subjective Date Seen: 04/04/24 Interval history: Hospital day 4. Postoperative day 3, status post exploratory laparotomy, partial small-bowel resection of terminal ileum, repair of strangulated right inguinal hernia. Still NPO. NG tube in place. NG tube output yesterday 2300 mL. Urine output yesterday 1700 mL. Receiving normal saline with dextrose and 20 mEq KCl/L at 125 mL/hour. Received about 5200 mL of fluids yesterday. Weight today 57.6 kg, 58.2 kg on 04/03/24, 54.7 kg on 04/02/24, and admission weight of 54.4 kg on 04/01/24. A little less pain today. Tolerating increased activities in her room and i the halls. Notes less swelling in hands and feet. Denies nausea or vomiting. Notes increased bowel sounds, but still no flatus or BM. Tolerating urethral catheter out since yesterday. Exam Narrative: Exam Narrative: Examined patient in her hospital room. Now also observe her walking in the hallways with standby assist. Vision and hearing are adequate. Alert and oriented to self, place, time, situation. Friendly, articulate, cooperative. NG tube still in place. Lungs actually remain clear to auscultation. Heart tones with regular rhythm. Again hear bowel sounds today was yesterday did not. Abdomen otherwise without distension or rebound. Independent in transfer, station, and gait. Const: Vital Signs, click to edit/add: Vital Signs - 24 hr 04/03/24 11:35 04/03/24 15:00 04/03/24 15:00 Temperature 99.4 F 99.6 F Pulse Rate Pulse Rate [Pulse Oximeter] 109 H 108 H Respiratory Rate 16 18 18 Blood Pressure [Le ft Arm] 92/51 L 102/58 L Pulse Oximetry 97 96 96 Oxygen Delivery Ar thod Room Air Room Air Room Air 04/03/24 15:00 04/03/24 17:58 04/03/24 20:00 Temperature 98.8 F Pulse Rate 9 L Pulse Rate [Pulse Oximeter] 108 H Respiratory Rate 18 18 Blood Pressure [Le ft Arm] 98/62 Pulse Oximetry [facility] 04/03/24 23:00 04/03/24 23:00 04/03/24 23:00 Temperature 99 F Pulse Rate 107 H Pulse Rate [Pulse Oximeter] 108 H Respiratory Rate 18 18 Blood Pressure [Le ft Arm] 111/67 Pulse Oximetry 98 98 [facility] 04/03/24 23:00 04/04/24 03:00 04/04/24 07:00 Temperature 99.1 F 98.3 F Pulse Rate Pulse Rate [Pulse Oximeter] 108 H 98 97 Respiratory Rate 18 18 20 Blood Pressure [Le ft Arm] 99/59 L 108/72 Pulse Oximetry 98 98 Oxygen Delivery Me thod Room Air Room Air 04/04/24 07:00 04/04/24 07:00 04/04/24 07:18 Temperature Pulse Rate 100 Pulse Rate [Pulse Oximeter] 97 Respiratory Rate 20 20 Blood Pressure [Le ft Arm] Pulse Oximetry 98 Oxygen Delivery Me thod Room Air Labs Labs: Laboratory Results - last 24 hr 04/03/24 04/04/24 11:52 06:17 WBC 10.14 RBC 3.28 L Hgb 9.6 L Hct 29.3 L MCV 89 MCH 29 MCHC 33 RDW Coeff of Hoang 13.0 Plt Count 345 Neut % (Auto) 85.3 H Lymph % (Auto) 6.6 L [place] % (Auto) 5.4 Eos % (Auto) 2.2 Baso % (Auto) 0.1 Neut # (Auto) 8.60 H Lymph # (Auto) 0.70 L [place] # (Auto) 0.50 Eos # (Auto) 0.22 Baso # (Auto) 0.01 Abs Immat Gran (auto) 0.04 Imm/Tot Granulo (auto) 0.4 Sodium 128 L 134 L Potassium 3.3 L 3.1 L Chloride 104 Carbon Dioxide 29 Anion Gap 1 L BUN 4 L Creatinine 0.5 Estimated Creat Clear 138.73 Estimated GFR 123 Glucose 122 H Calcium 7.7 L
--- NOTE | 2024-04-04 11:57 | PC.NURSE ---
Patient reported continuous flatus present throughout morning. RN updated Dr. Menezes.
[2024-04-04 13:21] LABS: Potassium* 3.9 mmol/L (3.6-5.1)
[2024-04-04] MEDS: ACETAMINOPHEN 325 MG TABLET 650 MG PO ×2 (16:29→22:21)
--- NOTE | 2024-04-04 19:04 | PC.NURSE ---
Nursing Care Hours: [id number] Pt this shift calm and cooperative, alert and oriented. SB assist getting in and out of bed d/t tubings, otherwise independent in juarez and bathroom. Voiding but no BM, pt reports passing flatulence. Pain controlled per eMAR. Started Tylenol PO. Pt struggled with swallowing pills whole, required some extra sips of liquid to help it advance. No nausea or increased pain reported with NG locked. Crosscutter suggested cutting pills in half next time.
[2024-04-05] VITALS (7 sets, daily range): BP systolic 101–122; BP diastolic 68–76; PULSE 80–102; RESP 16; TEMP 36.3–37.4; O2SAT 96–100
[2024-04-05] MEDS: BENZOCAINE/MENTHOL 1 EACH LOZENGE MUCOUS MEM ×2 (00:06→03:55)
[2024-04-05] MEDS: PIPERACILLIN/TAZOBACTAM 3.375 GM in 0.9 % SODIUM CHLORIDE Mini-bag 100 ML IVPB ×4 (03:52→22:11)
[2024-04-05] MEDS: 5 % DEX/0.9 SOD CHL+KCL 20 mEq 1,000 ML 125 ML IV (03:52)
[2024-04-05 07:09] LABS: Chloride* 108 mmol/L (96-114); Potassium* 3.5 mmol/L (3.6-5.1); Sodium* 138 mmol/L (135-149)
[2024-04-05 07:10] LABS: Hematocrit 30.9 % (33.0-51.0); Hemoglobin* 9.9 gm/dL (12.0-16.0); Mean Corpuscular HGB Conc 32 gm/dL (32-36); Mean Corpuscular Hemoglobin 29 pg (26-34); Mean Corpuscular Volume 91 fL (80-100); Platelet Count* 402 K/uL (140-440); Red Blood Count 3.41 m/uL (4.00-5.20); White Blood Count* 7.38 K/uL (4.50-11.00)
[2024-04-05 07:11] LABS: Basophils Absolute Auto 0.02 K/uL (0.00-0.30); Basophils Percent Auto 0.3 % (0.0-3.0); Creatinine* 0.4 mg/dL (0.5-1.5); Eosinophils Absolute Auto 0.21 K/uL (0.00-0.50); Eosinophils Percent Auto 2.8 % (0.0-7.0); Est. Creatinine Clearance* 170.77; Estimated Glomerular Filt Rate 130 ml/min; Immature Granulocytes Abs Auto 0.03 K/uL (0.00-0.30); Immature Granulocytes Pct Auto 0.4 %; Lymphocytes Percent Auto 10.3 % (20-44); Monocytes Percent Auto 6.2 % (0.0-11.0); RDW Coefficient of Variation % 13.1 % (11.5-15.5)
[2024-04-05 07:12] LABS: Anion Gap 2 mEq/L (7-15); Calcium* 8.3 mg/dL (8.4-10.6); Carbon Dioxide* 28 mmol/L (20-32); Glucose* 118 mg/dL (60-115)
--- NOTE | 2024-04-05 07:24 | PC.NURSE ---
Pt alert and oriented x3. Afebrile. Pt denies pain, chest pain, N/V and SOB. Pt is up SBA with NG tube and IV pole. NG tube is patent and draining, pt had 300ml green/yellow output. Pt slept intermittently throughout night.
[2024-04-05 07:27] LABS: Blood Urea Nitrogen* < 2 mg/dL (5-24)
[2024-04-05 07:28] LABS: Slide Review Reflex No
--- NOTE | 2024-04-05 08:44 | PC.NURSE ---
END OF SHIFT NOTE: PT PLEASANT AND COOPERATIVE WITH CARES. A&Ox3. DENIES CP, SOB, N/V. AMBULATES INDEPENDENTLY. UTILIZES PILLOW TO SPLINT ABDOMEN WHEN SITTING UP AND GETTING OUT OF BED. NG TO LIS WITH DARK GREEN OUTPUT. VSS ON RA; SOFT BP'S 106/72, 93/56 ASYMPTOMATIC. PT HAD BMX 3 THIS SHIFT. AFEBRILE. BED ALARM ON AND CALL LIGHT WITHIN PT?S REACH.?
--- NOTE | 2024-04-05 09:40 | PM.GSPN ---
Subjective Subjective Date Seen: 04/05/24 Interval history: Patient ?feels great? this morning. No significant abdominal pain. She is feeling hungry. She started to have bowel movements yesterday and continues to pass gas. No other concerns. Exam Narrative: Exam Narrative: General: Alert and oriented, no acute distress Abdomen: Soft, nontender to palpation. Midline incision and right lower quadrant hernia incision with klever in place, no concern for infection HEENT: NG tube in place with clear output in tube and canister. Const: Vital Signs, click to edit/add: Vital Signs - 24 hr 04/04/24 11:00 04/04/24 15:00 04/04/24 15:00 Temperature 99.5 F Pulse Rate 100 Pulse Rate [Pulse Oximeter] 105 H 100 Respiratory Rate 18 18 Blood Pressure [Le ft Arm] 107/58 L Blood Pressure [Ri ght Arm] Pulse Oximetry 98 Oxygen Delivery Me thod Room Air 04/04/24 15:00 04/04/24 15:00 04/04/24 20:22 Temperature 99.7 F H Pulse Rate 87 Pulse Rate [Pulse Oximeter] 96 Respiratory Rate 24 18 Blood Pressure [Le ft Arm] Blood Pressure [Ri ght Arm] 106/67 Pulse Oximetry 92 96 Oxygen Delivery Me thod Room Air Room Air 04/04/24 20:22 04/04/24 20:22 04/04/24 22:15 Temperature 99.0 F Pulse Rate Pulse Rate [Pulse Oximeter] 68 85 Respiratory Rate 20 20 18 Blood Pressure [Le ft Arm] Blood Pressure [Ri ght Arm] 93/56 L Pulse Oximetry 98 96 Oxygen Delivery Me thod Room Air Room Air 04/05/24 03:38 04/05/24 07:00 Temperature 97.4 F L Pulse Rate 80 Pulse Rate [Pulse Oximeter] 91 Respiratory Rate 16 Blood Pressure [Le ft Arm] Blood Pressure [Ri ght Arm] 119/76 Pulse Oximetry 97 Oxygen Delivery Me thod Room Air Labs/Imaging Labs Labs: Hemoglobin stable at 9.9. Potassium 3.5 Imaging Imaging: No new imaging Progress Note:A&P Assessment and plan (1) S/P exploratory laparotomy: Status: Acute Assessment and Plan: 38-year-old female s/p exploratory laparotomy, small-bowel resection, and open right inguinal hernia repair for strangulated right inguinal hernia POD 4. Hyponatremia is resolved. Potassium continues to improve and is at 3.5 this morning. NG tube output is still high at 1250 yesterday, 500 since midnight, but clear. Patient has return of bowel function and is feeling hungry this morning. Will do a clamping trial for 4 hours. Okay for clear liquids. Anticipate removal of NG tube later today, with slow advancement of diet. Continue to encourage ambulation. (2) S/P right inguinal hernia repair: Status: Acute
[2024-04-05] MEDS: POTASSIUM CHLORIDE 10 MEQ, LIDOCAINE 1 % 1 ML in 0.9 % SODIUM CHLORIDE 100 ml 100 ML 106 MEQ IVPB ×3 (09:51→13:03)
[2024-04-05] MEDS: ENOXAPARIN 40 MG/0.4 ML INJ SUBCUT (09:52)
--- NOTE | 2024-04-05 14:29 | PM.IMPN1 ---
Progress Note: A&P Assessment and plan (1) S/P exploratory laparotomy: Problem details: small bowel resection 04/01/2024. Postop ileus is now resolved as of 04/05/2024 Status: Acute (2) S/P right inguinal hernia repair: Problem details: right femoral hernia repair without mesh 04/01/2024. Status: Acute (3) Malnutrition due to starvation: Problem details: - Due to minimal nutritional intake for 12 days prior to admission. - Continue with dextrose IV solution while NPO. - consider advancing diet as deemed appropriate per her general surgeon, versus adding parental nutritional support if warranted as early as 04/07/2024 if continues to be NPO. Status: Acute (4) Hyponatremia: Problem details: Slowly correcting. Was having hyponatremia when on LR. Is now on normal saline IV fluid. Status: Acute (5) Hypokalemia: Problem details: Correcting, follow. Added 20 mEq of potassium per L of IV fluid on 04/03/2024. Intermittent bumps of potassium chloride IV as needed. Status: Acute (6) Incarcerated hernia: Problem details: - 04/01/24 status post diagnostic laparoscopy, exploratory laparotomy, open right femoral hernia repair without mesh, small-bowel resection with primary anastomosis. - cares per General surgery. - NG tube, NPO. - will attempt removal of urethral catheter morning of 04/03/2024. - increased activity to ambulating safely 6 times daily minimum, twice in the morning, twice in the afternoon, twice in the evening. Status: Acute (7) Small bowel obstruction: Problem details: Onset March 20. Constipation, vomiting, anorexia, malnutrition, dehydration all developed from small-bowel obstruction from incarcerated femoral hernia Status: Acute Plan 1. Reviewed impression with patient 2. Answered her questions. 3. Continue to follow with General surgery. Discussed with Dr. King. 4. Patient agreeable to above stated plans and recommendations. Time Spent With Patient Total time spent: 30 minutes Subjective Date Seen: 04/05/24 Interval history: Hospital day 5. Postoperative day 4, status post exploratory laparotomy, partial small-bowel resection of terminal ileum, repair of strangulated right inguinal hernia. Still NPO. NG tube in place. NG tube output yesterday 2300 mL. Urine output yesterday 1700 mL. Receiving normal saline with dextrose and 20 mEq KCl/L at 125 mL/hour. Received about 2900 mL of fluids yesterday. Weight on 04/05/24 was 56.7 kg, 57.6 kg on 04/04/24, 58.2 kg on 04/03/24, 54.7 kg on 04/02/24, and admission weight of 54.4 kg on 04/01/24. Much less pain today. Tolerating even more activities today. Notes swelling in hands and feet have almost resloved. Denies nausea or vomiting. Has had BMs. Tolerating urethral catheter out since yesterday. Exam Narrative: Exam Narrative: Examined patient in her hospital room and in the halls of the medical surgical nurses station area. Appears comfortable. Ambulating in the halls without assistance. Vision and hearing are adequate. Alert and oriented to self, place, time, situation. Friendly, articulate, cooperative. Lungs clear to auscultation. Heart tones with regular rhythm. Abdomen with active bowel sounds and soft. Independent in transfer, station, and gait. No peripheral edema. Const: Vital Signs, click to edit/add: Vital Signs - 24 hr 04/04/24 15:00 04/04/24 15:00 04/04/24 15:00 Temperature Pulse Rate 100 Pulse Rate [Pulse Oximeter] 100 Respiratory Rate 18 24 Blood Pressure [Ri ght Arm] Pulse Oximetry 92 Oxygen Delivery Me thod Room Air 04/04/24 15:00 04/04/24 20:22 04/04/24 20:22 Temperature 99.7 F H Pulse Rate 87 Pulse Rate [Pulse Oximeter] 96 68 Respiratory Rate 18 20 Blood Pressure [Ri ght Arm] 106/67 Pulse Oximetry [facility] 04/04/24 20:22 04/04/24 22:15 04/05/24 03:38 Temperature 99.0 F 97.4 F L Pulse Rate Pulse Rate [Pulse Oximeter] 85 91 Respiratory Rate 20 18 16 Blood Pressure [Ri ght Arm] 93/56 L 119/76 Pulse Oximetry 98 96 97 [facility] Room Air 04/05/24 07:00 04/05/24 07:00 04/05/24 07:00 Temperature Pulse Rate 80 Pulse Rate [Pulse Oximeter] 93 Respiratory Rate 16 16 Blood Pressure [Ri ght Arm] Pulse Oximetry 99 Oxygen Delivery Me thod Room Air 04/05/24 07:00 04/05/24 11:00 Temperature 98.8 F Pulse Rate Pulse Rate [Pulse Oximeter] 93 102 H Respiratory Rate 16 16 Blood Pressure [Ri ght Arm] 105/70 101/68 Pulse Oximetry 99 97 Oxygen Delivery Me thod Room Air Room Air Labs Labs: Laboratory Results - last 24 hr 04/05/24 06:39 WBC 7.38 RBC 3.41 L Hgb 9.9 L Hct 30.9 L MCV 91 MCH 29 MCHC 32 RDW Coeff of Hoang 13.1 Plt Count 402 Neut % (Auto) 80.0 H Lymph % (Auto) 10.3 L [place] % (Auto) 6.2 Eos % (Auto) 2.8 Baso % (Auto) 0.3 Neut # (Auto) 5.90 Lymph # (Auto) 0.80 L [place] # (Auto) 0.50 Eos # (Auto) 0.21 Baso # (Auto) 0.02 Abs Immat Gran (auto) 0.03 Imm/Tot Granulo (auto) 0.4 Sodium 138 Potassium 3.5 L Chloride 108 Carbon Dioxide 28 Anion Gap 2 L BUN < 2 L Creatinine 0.4 L Estimated Creat Clear 170.77 Estimated GFR 130 Glucose 118 H Calcium 8.3 L
[2024-04-05] MEDS: 5 % DEX/0.9 SOD CHL+KCL 20 mEq 1,000 ML 75 ML IV (16:53)
--- NOTE | 2024-04-05 18:51 | PC.NURSE ---
Nursing Care Hours: 8567-0643 Pt this shift calm and cooperative, alert and oriented. No pain medications required this shift, tolerating ice pack. Walked juarez x5 this shift. Frequent loose BM, continent. U/o sufficient, tolerating clear liquids. VSS. NG removed at noon. Pt c/o feeling like i just got punched in the nose after removal of NG, ice pack provided relief quickly. Tele shows NSR
[2024-04-06 03:32] VITALS: BP 114/75; PULSE 94; RESP 16; TEMP 37; O2SAT 98
[2024-04-06] MEDS: PIPERACILLIN/TAZOBACTAM 3.375 GM in 0.9 % SODIUM CHLORIDE Mini-bag 100 ML IVPB (03:43)
[2024-04-06 06:19] LABS: Basophils Absolute Auto 0.03 K/uL (0.00-0.30); Basophils Percent Auto 0.6 % (0.0-3.0); Eosinophils Absolute Auto 0.27 K/uL (0.00-0.50); Eosinophils Percent Auto 5.3 % (0.0-7.0); Hematocrit 29.3 % (33.0-51.0); Hemoglobin* 9.3 gm/dL (12.0-16.0); Immature Granulocytes Abs Auto 0.02 K/uL (0.00-0.30); Immature Granulocytes Pct Auto 0.4 %; Lymphocytes Percent Auto 18.7 % (20-44); Mean Corpuscular HGB Conc 32 gm/dL (32-36); Mean Corpuscular Hemoglobin 29 pg (26-34); Mean Corpuscular Volume 92 fL (80-100); Monocytes Percent Auto 5.9 % (0.0-11.0); Neutrophils Percent Auto 69.1 % (42.0-72.0); Platelet Count* 340 K/uL (140-440); RDW Coefficient of Variation % 13.3 % (11.5-15.5); White Blood Count* 5.07 K/uL (4.50-11.00)
[2024-04-06 06:43] LABS: Chloride* 112 mmol/L (96-114); Potassium* 3.7 mmol/L (3.6-5.1); Sodium* 137 mmol/L (135-149)
[2024-04-06 06:45] LABS: Creatinine* 0.4 mg/dL (0.5-1.5); Est. Creatinine Clearance* 170.94; Estimated Glomerular Filt Rate 130 ml/min
[2024-04-06 06:46] LABS: Anion Gap 4 mEq/L (7-15); Carbon Dioxide* 21 mmol/L (20-32); Glucose* 110 mg/dL (60-115)
[2024-04-06 06:47] LABS: Calcium* 8.2 mg/dL (8.4-10.6)
--- NOTE | 2024-04-06 06:49 | PC.NURSE ---
Pt alert and oriented x3. Afebrile. Denies pain, SOB, Chest pain, and N/V. Pt?s midline and right lower abdomen incision with klever is CDI. Pt is up ad tacho in room. Pt is voiding, passing gas, and is having loose stools. ?
[2024-04-06 06:52] LABS: Blood Urea Nitrogen* < 2 mg/dL (5-24)
[2024-04-06 07:00] VITALS: BP 112/84; PULSE 91; RESP 16; TEMP 37.1; O2SAT 91; O2SAT 98
[2024-04-06 07:16] LABS: Slide Review Reflex Yes
[2024-04-06 07:17] LABS: Slide Review Acceptable Review (Acceptable)
[2024-04-06] MEDS: ENOXAPARIN 40 MG/0.4 ML INJ SUBCUT (10:15)
--- NOTE | 2024-04-06 10:35 | PM.DS1 ---
DS: Providers Provider Date Seen: 04/06/24 Date of admission: 04/01/24 20:26 Primary care physician: Not a Local Provider Admitting Clinician: Guille Mensah MD Attending Physician on discharge: Guille Mensah MD DS: Summary Hospital Course Hospital Course: Patient presented to the the emergency department with a 10 day history of abdominal pain, obstruction and poor nutrition. She underwent a exploratory laparotomy, small-bowel resection an open right femoral hernia repair on 04/01/2024. Postoperatively her electrolyte abnormalities did slowly improve and normalized. She had return of bowel function and was able to advance her diet to normal. She completed a 4 day course of IV antibiotics. At the time of discharge she had greater than 24 hours of being afebrile and no leukocytosis. No need to continue antibiotics at home. An appointment was made for a nursing visit to remove her uri 10-14 days after surgery. She will follow up with General surgery in 2 weeks. Time Spent with Patient Time attestation: Total time spent providing and/or coordinating discharge services: Exam Narrative: Exam Narrative: General: Alert, oriented, no acute distress Respiratory: Equal breath rise bilaterally, maintained on room air CV: Regular rhythm and rate, well perfused Abdomen: Uri in place, incisions clean/dry/intact with no concern for infection. Nontender to palpation and soft. Const: Vital Signs, click to edit/add: Vital Signs - 24 hr 04/05/24 11:00 04/05/24 15:00 04/05/24 15:00 Temperature Pulse Rate Pulse Rate [Pulse Oximeter] 102 H 95 Respiratory Rate 16 16 16 Blood Pressure [Ri ght Arm] 101/68 Pulse Oximetry 97 96 Oxygen Delivery Me thod Room Air Room Air 04/05/24 15:00 04/05/24 15:00 04/05/24 19:35 Temperature 99.3 F 98.4 F Pulse Rate 99 Pulse Rate [Pulse Oximeter] 95 99 Respiratory Rate 16 16 Blood Pressure [Ri ght Arm] 122/73 120/72 Pulse Oximetry 96 99 Oxygen Delivery Me thod Room Air Room Air 04/05/24 22:12 04/05/24 22:12 04/05/24 22:30 Temperature 98.8 F Pulse Rate Pulse Rate [Pulse Oximeter] 96 Respiratory Rate 16 16 16 Blood Pressure [Ri ght Arm] 114/75 Pulse Oximetry 100 100 Oxygen Delivery Me thod Room Air Room Air 04/06/24 03:32 04/06/24 07:00 04/06/24 07:00 Temperature 98.6 F Pulse Rate Pulse Rate [Pulse Oximeter] 94 91 Respiratory Rate 16 16 16 Blood Pressure [Ri ght Arm] 114/75 Pulse Oximetry 98 91 Oxygen Delivery Me thod Room Air Room Air 04/06/24 07:00 Temperature 98.7 F Pulse Rate Pulse Rate [Pulse Oximeter] 91 Respiratory Rate 16 Blood Pressure [[facility] Arm] 112/84 Pulse Oximetry 98 Oxygen Delivery Me thod Room Air DS: Data Data Completed and Pending Labs on day of discharge: Labs from last 24 hours 04/06/24 05:47 WBC 5.07 RBC 3.20 L Hgb 9.3 L Hct 29.3 L MCV 92 MCH 29 MCHC 32 RDW Coeff of Hoang 13.3 Plt Count 340 Neut % (Auto) 69.1 Lymph % (Auto) 18.7 L [place] % (Auto) 5.9 Eos % (Auto) 5.3 Baso % (Auto) 0.6 Neut # (Auto) 3.50 Lymph # (Auto) 0.90 [place] # (Auto) 0.30 Eos # (Auto) 0.27 Baso # (Auto) 0.03 Abs Immat Gran (auto) 0.02 Imm/Tot Granulo (auto) 0.4 Diff Slide Review Acceptable Review Sodium 137 Potassium 3.7 Chloride 112 Carbon Dioxide 21 Anion Gap 4 L BUN < 2 L Creatinine 0.4 L Estimated Creat Clear 170.94 Estimated GFR 130 Glucose 110 Calcium 8.2 L Discharge Plan Discharge Disposition: Home, Self-Care Date of Admission: 04/01/24 20:26 Attending Provider on Discharge: Cristina King Consulting Providers: García Walker Primary Care Provider: Provider,Not a Local Condition: Improved Anticipated Discharge Date/Time: 04/06/24 10:30 Discharge Medications: New hydrocodone-acetaminophen 5-325 mg tablet 1 tab PO Q6H PRN (Reason: pain) Qty: 15 0RF Discharge Orders: Discharge Order (Routine); Ordered 04/06/24 Ordered By: Cristina King Consulting provider completed their portion of the discharge: Yes Patient Education: Post-Operative Instructions: Hernia Repair Additional Instructions: You were prescribed a narcotic pain medication. In addition you may supplement with Tylenol and/or ibuprofen. Be sure to not exceed greater than 4 g of Tylenol in a 24 hour period. While on narcotic pain medicine please take stool softeners. A prescription of stool softeners has been sent to the pharmacy. Stop if having greater than 2 stools per day. You have uri in place, these will be removed 10-14 days after your surgery. An appointment will be made prior to you discharging for the removal. Okay to shower , do not soak in a bath or swim for 2 weeks. Activity Level: No strenuous activity Activity Detail: Activity as tolerated. Avoid strenuous activity. No lifting greater than 20 lb for 6 weeks. Discharge Diet: Regular Follow Up Appointments: Cristina King MD [Staff Physician] - Guille Mensah MD [Staff Physician] - (Patient needs staple removal 10-14 days after surgery, please make a nursing visit any time between 04/11-04/15. Two week follow-up visit with Dr. Mensah or Dr. King at the [facility]) Provider,Not a Local [Primary Care Provider] - Forms: [employer] Info Instructions
[2024-04-06 11:00] VITALS: BP 115/80; PULSE 98; RESP 18; O2SAT 98
--- NOTE | 2024-04-06 14:11 | PC.NURSE ---
Nursing Care Hours: 9520-4265 Pt this shift calm and cooperative, alert and oriented. No c/o pain. States intermittent dull cramping that is easily treated with movement and ice pack. Incision asymptomatic. Denies nausea. Advanced to full liquid and tolerating well. DC IV fluids and ABX. Pt took a shower here independently. Passing loose stool. VSS. Walking juarez independently. IV removed for discharge. Instructions went over with pt and pt family. Discussed and handout provided on low fiber foods to start off with and instructed to slowly increase over the next week or two. Discussed current loose stools and holding stool softeners for now but to start if noticing bulk or strain. Wheeled out to vehicle by family in stable condition.
== END 2024-04-06 12:47 | disposition home or self-care (01) | DRG 221 ==
LOC: ED 14:39 → SS 15:36 → MEDSURG 19:50 → SS 20:27 → MEDSURG 20:27
PROVIDERS: Family Medicine; Internal Medicine; Nurse Anesthetist, Certified Registered; Admitting Provider Surgery; Emergency Provider Emergency Medicine Emergency Medical Services; Visit Provider Surgery
PROC: 0DT80ZZ Resection of Small Intestine, Open Approach (ICD-10-PCS; CPT 49320; principal; 2024-04-01 14:45)
PROC: 0DT80ZZ Resection of Small Intestine, Open Approach (ICD-10-PCS; 2024-04-01 14:45)
DX: K40.30 Unilateral inguinal hernia, with obstruction, without gangrene, not specified as recurrent (principal); K41.30 Unilateral femoral hernia, with obstruction, without gangrene, not specified as recurrent; K63.1 Perforation of intestine (nontraumatic); R18.8 Other ascites; G89.18 Other acute postprocedural pain; E87.1 Hypo-osmolality and hyponatremia; E87.6 Hypokalemia; E83.51 Hypocalcemia; E46 Unspecified protein-calorie malnutrition; T73.0XXA Starvation, initial encounter; E86.0 Dehydration; R10.31 Right lower quadrant pain; I44.0 Atrioventricular block, first degree; Z68.1 Body mass index [BMI] 19.9 or less, adult
CPT/HCPCS: 00840; 36415; 64488; 74177; 76942; 80048; 82330; 83605; 83735; 84100; 84132; 84295; 84484; 85025; 88304; 88307; 94761; 99140; 99285; A9270; C9290; J0330; J0613; J0665; J1170; J1630; J1650; J2250; J2371; J2405; J2543; J2704; J3010; J3475; J3480; J3490; J7030; J7120; Q9967